=== PATIENT | female | born 1945 | race Caucasian/White ===

== ENCOUNTER 2020-06-25 12:54 | Outpatient (REF) | payer MEDICARE, MEDICAID, SELFPAY ==
--- NOTE | 2020-06-25 13:09 | XR_ITS ---
EXAMINATION: XR KNEE AP STANDING CLINICAL INFORMATION: Right knee pain. COMPARISON: 02/24/2013 TECHNIQUE: AP bilateral standing view of the knees was obtained. FINDINGS: Right knee: Severe medial compartment arthritis, joint space loss, osteophytes. Zkco-[id number] lateral compartment arthritis with marginal osteophytes. No evidence of acute fracture. Left knee: Single frontal projection. Moderate medial compartment, mild lateral compartment arthritis. Sclerotic focus projected over the central aspect of the distal femoral metaphysis/epiphysis, appears similar as compared to previous, incompletely evaluated. IMPRESSION: 1. Severe medial compartment, [id number] lateral compartment arthritis of the right knee. 2. Arthritis left knee, including moderate medial compartment arthritis. Incompletely evaluated sclerotic focus projected over the central aspect of the distal left femoral metaphysis/epiphysis, appearing similar to previous.
== END 2020-06-25 12:55 | disposition home or self-care (01) ==
LOC: CF 12:54
PROVIDERS: PCP Nurse Practitioner Family; Visit Provider Orthopaedic Surgery
DX: M17.11 Unilateral primary osteoarthritis, right knee (principal)
CPT/HCPCS: 20610; 73565; 99204; J1040

== ENCOUNTER → 2021-02-26 10:04 | Outpatient (BNVA) | payer MEDICARE, MEDICAID, SELFPAY | PROVIDERS: PCP Nurse Practitioner Family; Visit Provider Orthopaedic Surgery | DX: M54.16 Radiculopathy, lumbar region (principal); M17.11 Unilateral primary osteoarthritis, right knee | CPT/HCPCS: 99212 ==

== ENCOUNTER 2021-06-23 08:02 | Outpatient (REF) | payer MEDICARE, MEDICAID, SELFPAY ==
--- NOTE | ~2021-06-23 | XR_ITS ---
EXAMINATION: XR BOTH KNEES AP STANDING XR RIGHT KNEE, 2 VIEWS XR LEFT KNEE, 2 VIEWS CLINICAL INFORMATION: Pain. COMPARISON: Most recent bilateral knee radiographs dated 06/25/2020 TECHNIQUE: Standing AP view of both knees and lateral and sunrise views of the right and left knee. FINDINGS: Right knee: Severe medial compartment joint space narrowing with mild subchondral sclerosis. Tricompartmental marginal osteophytes. Patellofemoral subchondral cystic change. Small joint effusion. No abnormal soft tissue calcification. No fracture or dislocation. Left knee: Rzmi-wp-[id number] medial compartment joint space narrowing. Tricompartmental marginal osteophytes. 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 Small joint effusion. No abnormal soft tissue calcification. No fracture or dislocation. XR/XR knee LT 2V IMPRESSION: Right knee: Tricompartmental osteoarthritis, most severe within the medial compartment, unchanged. Small joint effusion. Left knee: Tricompartmental osteoarthritis, most prominent within the medial compartment, unchanged. Small joint effusion.
--- NOTE | ~2021-06-23 | XR_ITS ---
EXAMINATION: XR BOTH KNEES AP STANDING XR RIGHT KNEE, 2 VIEWS XR LEFT KNEE, 2 VIEWS CLINICAL INFORMATION: Pain. COMPARISON: Most recent bilateral knee radiographs dated 06/25/2020 TECHNIQUE: Standing AP view of both knees and lateral and sunrise views of the right and left knee. FINDINGS: Right knee: Severe medial compartment joint space narrowing with mild subchondral sclerosis. Tricompartmental marginal osteophytes. Patellofemoral subchondral cystic change. Small joint effusion. No abnormal soft tissue calcification. No fracture or dislocation. Left knee: Xlqi-zg-marxmter medial compartment joint space narrowing. Tricompartmental marginal osteophytes. 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 Small joint effusion. No abnormal soft tissue calcification. No fracture or dislocation. XR/XR knee RT 2V IMPRESSION: Right knee: Tricompartmental osteoarthritis, most severe within the medial compartment, unchanged. Small joint effusion. Left knee: Tricompartmental osteoarthritis, most prominent within the medial compartment, unchanged. Small joint effusion.
--- NOTE | ~2021-06-23 | XR_ITS ---
EXAMINATION: XR BOTH KNEES AP STANDING XR RIGHT KNEE, 2 VIEWS XR LEFT KNEE, 2 VIEWS CLINICAL INFORMATION: Pain. COMPARISON: Most recent bilateral knee radiographs dated 06/25/2020 TECHNIQUE: Standing AP view of both knees and lateral and sunrise views of the right and left knee. FINDINGS: Right knee: Severe medial compartment joint space narrowing with mild subchondral sclerosis. Tricompartmental marginal osteophytes. Patellofemoral subchondral cystic change. Small joint effusion. No abnormal soft tissue calcification. No fracture or dislocation. Left knee: Sjye-jn-xrzsceqf medial compartment joint space narrowing. Tricompartmental marginal osteophytes. 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 Small joint effusion. No abnormal soft tissue calcification. No fracture or dislocation. XR/XR knee standing BI IMPRESSION: Right knee: Tricompartmental osteoarthritis, most severe within the medial compartment, unchanged. Small joint effusion. Left knee: Tricompartmental osteoarthritis, most prominent within the medial compartment, unchanged. Small joint effusion.
== END 2021-06-23 08:03 | disposition home or self-care (01) ==
LOC: HO.HOSX 08:02
PROVIDERS: Visit Provider Orthopaedic Surgery
DX: M17.11 Unilateral primary osteoarthritis, right knee (principal); M25.562 Pain in left knee; M54.16 Radiculopathy, lumbar region
CPT/HCPCS: 73560; 73565; 99212

== ENCOUNTER → 2021-07-22 08:57 | Outpatient (BNVA) | payer MEDICARE, MEDICAID, SELFPAY | PROVIDERS: PCP Physician Assistant Medical; Visit Provider Nurse Practitioner Family | DX: M54.16 Radiculopathy, lumbar region (principal) | CPT/HCPCS: 99202 ==

== ENCOUNTER → 2021-08-19 10:15 | Outpatient (BNVA) | payer MEDICARE, MEDICAID, SELFPAY | PROVIDERS: PCP Physician Assistant Medical; Visit Provider Nurse Practitioner Family | DX: Z13.89 Encounter for screening for other disorder (principal) | CPT/HCPCS: 99212 ==

== ENCOUNTER 2021-08-19 11:21 | Outpatient (REF) | payer MEDICARE, MEDICAID, SELFPAY ==
[2021-08-19 12:24] LABS: Blood Urea Nitrogen 14 mg/dL (9-16); Estimated Glomerular Filt Rate > 60
== END 2021-08-19 11:22 | disposition home or self-care (01) ==
LOC: HO.10HDL 11:21
PROVIDERS: Visit Provider Nurse Practitioner Family
DX: Z01.818 Encounter for other preprocedural examination (principal)
CPT/HCPCS: 36415; 82565; 84520; 99212

== ENCOUNTER → 2021-10-01 09:45 | Outpatient (BNVA) | payer MEDICARE, MEDICAID, SELFPAY | PROVIDERS: Visit Provider Orthopaedic Surgery | DX: Z01.812 Encounter for preprocedural laboratory examination (principal); Z01.810 Encounter for preprocedural cardiovascular examination ==

== ENCOUNTER → 2021-10-22 12:32 | Outpatient (BNVA) | payer OTHER, SELFPAY | PROVIDERS: PCP Physician Assistant Medical; Referring Provider Physician Assistant Medical; Visit Provider Internal Medicine | DX: Z01.810 Encounter for preprocedural cardiovascular examination (principal); I35.0 Nonrheumatic aortic (valve) stenosis; I25.10 Atherosclerotic heart disease of native coronary artery without angina pectoris; I10 Essential (primary) hypertension | CPT/HCPCS: 99202 ==

== ENCOUNTER → 2021-10-24 12:35 | Outpatient (REF) | payer OTHER, SELFPAY ==
--- NOTE | 2021-10-24 12:44 | CA_ITS ---
Transthoracic Echocardiogram Patient (Last, First, Middle): Emily Dawn, Gender: Female Date of : 1945 Age: 76 Procedure Date: 10/24/2021 Procedure Type: Transthoracic Echocardiogram Location: OP Height: 160.02 cm Weight: 96.62 kg BSA: 1.99 m2 Heart Rate: bpm BP: 126 / 62 mmHg Pilling Machine Operator: ZAFAR Referring MD: Yogi Harris MD Symptoms: I35.0 - Nonrheumatic aortic (valve) stenosis Study Quality: Fair ECG Rhythm: Sinus Conclusions: - The left ventricular systolic function is hyperdynamic. The visually estimated ejection fraction is >70%. - No obvious valvular pathology seen on this study. Findings Left Ventricle Normal left ventricular cavity size. The left ventricular systolic function is hyperdynamic. The visually estimated ejection fraction is >70%. E/E prime ratio is >15, consistent with elevated filling pressures. Evidence suggests grade I (mild) diastolic dysfunction. There is mild septal asymmetric hypertrophy. Right Ventricle Normal right ventricular cavity size and systolic function. Atria Both atria are normal in size. Aortic Valve There is a normal trileaflet aortic valve. There is no aortic valve stenosis. There is no aortic valve regurgitation. Mitral Valve The mitral valve appears normal. There is no mitral valve regurgitation. There is no mitral valve stenosis. Pulmonic Valve The pulmonic valve was not well visualized. Tricuspid Valve There is trace tricuspid valve regurgitation. The pulmonary artery systolic pressure is normal. Great Vessels The aortic annulus, sinuses of valsalva, and asc aorta are normal in size. Venous The inferior vena cava is normal in size and collapses greater than 50% with inspiration. Pericardium/Pleural There is no evidence of pericardial effusion. Prior Study Comparison No prior study available for comparison. Recommendations, Care & Conclusions No obvious valvular pathology seen on this study. Measurements 2D Linear Measurements IVSd: 1.10 0.6-0.9/0.6-1.0 cm LVIDd: 4.93 3.9-5.3/4.2-5.9 cm LVIDd Index: 2.48 2.4-3.2/2.2-3.1 cm/m2 LVIDs: 3.18 2.0-3.6 cm LVPWd: 0.86 0.7-1.1 cm Ao Root: 2.70 2.1-3.5 cm LA Diam: 4.20 2.7-3.8/3.0-4.0 cm LAIDs Index: 2.11 1.5-2.3 cm/m2 LV Mass: 215.11 67-162/88-224 g LV Mass Index: 108.09 43-95/49-115 g/m2 LVOT Diam: 2.00 3.0+(-)1.3 cm 2D Systolic Function EF 4C: 57.60 >55% EF 2C: 61.70 >55% EF BiP: 59.60 >55% Mitral Valve MV Pk E: 1.18 MV PK A: 1.62 MV Decel Time: 246.00 E/A: 0.70 E'Lateral: 6.74 E'Medial: 4.46 E/E' Med: 26.50 E/E' Lat: 17.50 PHT: 72.00 MVA PHT: 3.06 Decel [place]: 4.77 Aortic Valve AoV Pk Francis: 2.06 AoV Mn Francis: 1.47 AoV VTI: 0.45 AoV Pk Grad: 17.00 Aov Mn Grad: 10.00 NATACHA Cont.VTI: 2.28 LVOT LVOT Pk Francis: 1.32 LVOT Mn Francis: 0.90 LVOT VTI: 0.33 LVOT Pk Grad: 7.00 LVOT Mn Grad: 4.00 LVOT Diam: 2.00 LVOT Area: 3.14 Diastolic Function MV Pk E: 1.18 MV Pk A: 1.62 E/A: 0.70 E'Medial: 4.46 E/E' Med: 26.50 E' Laterial: 6.74 E/E' Lat: 17.50 Right Ventricle TAPSE (mm): 25.40 TVS' Francis: 16.80 Tricuspid Valve TR Pk Francis: 1.03 TR Pk Grad: 4.00 Great Vessels Aorta Ao Root-2D: 2.70 2.0-3.7 cm Ao Asc: 3.00 2.1-3.4 cm Ao Arch: 3.00 Updated in Other Vendor System with Status of Final Yogi Harris MD electronically signed on 10/25/2021 1:04:48 PM with status of Final
== END ==
LOC: HO.CARD 12:35
PROVIDERS: Visit Provider Internal Medicine
DX: I35.0 Nonrheumatic aortic (valve) stenosis (principal)
CPT/HCPCS: 93306; 99212

== ENCOUNTER 2021-10-29 06:06 | Inpatient (IN) | payer OTHER, SELFPAY ==
[2021-10-03 09:31] LABS: MANUAL DIFF FLAG NO
[2021-10-03 09:48] LABS: Basophils Absolute Auto 0.1 X10*3/uL (0.0-0.2); Basophils Percent Auto 0.8 % (0-2); Eosinophils Absolute Auto 0.4 X10*3/uL (0.0-0.4); Eosinophils Percent Auto 2.7 % (0-4); Hematocrit 45.4 % (37.0-47.0); Hemoglobin 14.2 g/dl (12.0-16.0); Imm Gran Abs Auto 0.06 X10*3/uL (0.00-0.03); Imm Gran Pct Auto 0.5 % (0.0-0.4); Lymphocytes Absolute Auto 2.5 X10*3/uL (1.2-4.9); Lymphocytes Percent Auto 19.8 % (20-40); Mean Corpuscular HGB Conc 31.3 g/dl (31.0-35.0); Mean Corpuscular Hemoglobin 27.6 pg (27.0-33.0); Mean Corpuscular Volume 88.3 fL (80.0-98.0); Mean Platelet Volume 9.9 fL (9.4-12.3); Monocytes Absolute Auto 0.8 X10*3/uL (0.1-1.2); Monocytes Percent Auto 6.2 % (2-11); Neutrophils Absolute Auto 8.9 x10*3/uL (2.0-8.3); Platelet Count 232 X10*3/uL (160-400); Red Blood Count 5.14 X10*6/uL (4.20-5.50); Red Cell Distribution Width 15.4 % (11.0-16.0); White Blood Count 12.8 X10*3/uL (4.8-10.8)
[2021-10-03 10:24] LABS: Anion Gap 12 (12-20); Blood Urea Nitrogen 14 mg/dL (9-16); Calcium 8.5 mg/dL (8.4-10.2); Carbon Dioxide 25 mmol/L (22-29); Chloride 104 mmol/L (96-108); Estimated Glomerular Filt Rate > 60; Glucose Random 167 mg/dL (60-115); Potassium 3.9 mmol/L (3.3-5.1); Sodium 137 mmol/L (135-145)
--- NOTE | 2021-10-17 | ECG_ITS ---
Test Reason : CP Blood Pressure : / mmHG Vent. Rate : 078 BPM Atrial Rate : 078 BPM P-R Int : 146 ms QRS Dur : 082 ms QT Int : 386 ms P-R-T Axes : 055 -02 021 degrees QTc Int : 440 ms Normal sinus rhythm Normal ECG When compared with ECG of 15-MAR-2014 09:14, No significant change was found Referred By: John Hale Electronically Signed By:RAFIQ URIBE MD
[2021-10-17 12:12] VITALS: BP 179/77; PULSE 78; RESP 20; O2SAT 97; BMI 37.8
--- NOTE | 2021-10-17 12:27 | HO.ANESPROP2 ---
Documented by User: Brook Talley NP 10/28/21 08:22 HPI - Anesthesia Eval Consult details Narrative: 76yo F for Right Knee Replacement Total 04/2021 pt s/p L4-5 minimally invasive decompression and discectomy . Discussed GA if spinal anesthesia not possible. Pt and verbalized understanding PCP cleared Cardiac cleared Echocardiogram with hyperdynamic LVEF.? No significant valvular pathology.? No evidence of aortic stenosis.? May proceed with knee surgery as planned.? Low cardiac risk. PMF Active Problems Active Problems: All Active Problems (Updated 10/17/21 @ 12:16 by Soraya Chavez RN) Primary localized osteoarthritis of right knee (Acute) Lumbar radicular pain (Acute) Preprocedural examination (Acute) Past Medical History Medical History Arthritis Asthma COVID-19 vaccine series completed Elevated cholesterol GERD (gastroesophageal reflux disease) Hepatitis Hypertension Pre-diabetes TIA (transient ischemic attack) Family History Family History Father Cancer Mother No problems noted. Family history of problems with anesthesia: No Surgical History Surgical History H/O colonoscopy History of arthroscopy of right knee History of cholecystectomy History of esophagogastroduodenoscopy (EGD) History of rectal polypectomy History of tubal ligation Hx of lumbar discectomy History of Problems with Anesthesia: No Social History Social History Housing Other:: mobile home Are you a primary career services representative to a significant other at home: No Do you presently have visiting nurse or other home services: No Patient Tobacco Use Status: Former Tobacco user Quit Date: 09/26/21 Tobacco use type: Cigarette Years Smoked: 52 Smoked in Last 30 Days: Yes Patient Interested in Nicotine Replacement: Yes Use of substances other than those prescribed or required for medical reasons: No Have you been hit, kicked, punched, or otherwise hurt by someone within the past year? If so, by whom?: No Are you DNR?: No Advance Directives: No Advance Directives Information Provided: Yes (brochure given) Advance Directives on File: No Recently lost weight without trying: No Eating poorly because of decreased appetite: No Nutrition Risks: No Nutritional Risk Poor oral hygiene: No (full upper & lower dentures) Current occupational status: retired Current occupation: Rt handed/retired Narrative Narrative: No recent illness No SOB/CP with minimal activity. Activity limited to pain Meds Allergies Allergy/AdvReac Type Severity Reaction Status Date / Time peginterferon ramez-2a Allergy Intermediate Confusion/extreme Verified 10/23/21 13:03 [From Pegasys] HTN Penicillins [PENICILLINS] Allergy Intermediate itching/hives Verified 10/23/21 13:03 (childhood allergy) Home Medications Medication Instructions Recorded Confirmed Last Taken Type amlodipine 10 mg tablet 10 mg PO DAILY 06/19/20 10/22/21 10/29/21 History aspirin 81 mg tablet,delayed 81 mg PO DAILY 06/19/20 10/22/21 Unknown History release (Adult Low Dose Aspirin) simethicone 125 mg capsule (Gas 125 mg PO BID-QID PRN 06/19/20 10/22/21 Unknown History Relief (simethicone)) atorvastatin 10 mg tablet 10 mg PO DAILY 06/25/20 10/22/21 Unknown History trospium 20 mg tablet 20 mg PO DAILY 06/25/20 10/22/21 Unknown History sertraline 50 mg tablet 50 mg PO BEDTIME 07/22/21 10/22/21 Unknown History acetaminophen 500 mg tablet 1,000 mg PO Q6H PRN 10/17/21 10/22/21 Unknown History albuterol sulfate 0.63 mg/3 mL 0.63 mg INHALATION Q4-6H PRN 10/17/21 10/22/21 Unknown History solution for nebulization budesonide-formoterol HFA 160 1 inh INHALATION BID PRN 10/17/21 10/22/21 Unknown History mcg-4.5 mcg/actuation aerosol inhaler (Symbicort) omeprazole 40 mg capsule,delayed 40 mg PO BID 10/17/21 10/22/21 10/29/21 History release umeclidinium 62.5 mcg/actuation 1 inh INHALATION DAILY 10/17/21 10/22/21 10/29/21 History blister powder for inhalation (Incruse Ellipta) torsemide 5 mg tablet 5 mg PO DAILY 10/22/21 10/22/21 Unknown History Exam Exam Date and Time: October 17, 2021 1227 Height,Weight and Vital Signs: Height 5 ft 3 in Weight 96.8 kg Last Vital Signs Pulse 78 10/17/21 12:12 Resp 20 10/17/21 12:12 BP 179/77 H 10/17/21 12:12 Pulse Ox 97 10/17/21 12:12 Pertinent Lab Results Pertinent Lab Results: Laboratory Tests 10/03/21 10/03/21 09:29 09:29 WBC 12.8 H RBC 5.14 Hgb 14.2 Hct 45.4 MCV 88.3 MCH 27.6 MCHC 31.3 RDW 15.4 Plt Count 232 MPV 9.9 Immature Gran % (Auto) 0.5 H Neut % (Auto) 70.0 Lymph % (Auto) 19.8 L Smith % (Auto) 6.2 Eos % (Auto) 2.7 Baso % (Auto) 0.8 Lymph # (Auto) 2.5 Smith # (Auto) 0.8 Eos # (Auto) 0.4 Baso # (Auto) 0.1 Abs Immat Gran (auto) 0.06 H Absolute Neuts (auto) 8.9 H Absolute Nucleated RBC 0.000 Nucleated RBC % (auto) 0.0 Sodium 137 Potassium 3.9 Chloride 104 Carbon Dioxide 25 Anion Gap 12 BUN 14 Creatinine 0.85 Estim Creat Clear Calc TNP Estimated GFR > 60 Random Glucose 167 H Calcium 8.5 Narrative Narrative: EKG 09/2021 Vent. Rate : 078 BPM ? ? Atrial Rate : 078 BPM ?? P-R Int : 146 ms? QRS Dur : 082 ms ? ? QT Int : 386 ms ? ? ? P-R-T Axes : 055 -02 021 degrees ?? QTc Int : 440 ms ? Normal sinus rhythm Normal ECG When compared with ECG of 15-MAR-2014 09:14, No significant change was found MRI 09/2021 Essentially similar chronic multilevel degenerative changes with central canal stenosis and bilateral neural foraminal narrowing. ECHO 10/2021 Conclusions: - The left ventricular systolic function is hyperdynamic.? The ? visually estimated ejection fraction is >70%.? - No obvious valvular pathology seen on this study.?? Airway Mallampati Class: III (small mouth) TM Dist: >3cm Neck ROM: Full Denture: Upper and Lower Heart: RRR Lungs: Uppers clear, Lowers dim but no adventicous sounds Assessment and Plan Assessment Anesthesia Assessment: Anesthesia Plan Discussed (Spinal vs GA and Nerve block) and PAT Visit Final Anesthetic Review Family History of Problems with Anesthesia: No History of Problems with Anesthesia: No Documented by User: Yumi Thompson MD 10/29/21 08:15 PMFSH Active Problems Active Problems: All Active Problems (Updated 10/17/21 @ 12:16 by Soraya Chavez RN) Primary localized osteoarthritis of right knee (Acute) Lumbar radicular pain (Acute) Preprocedural examination (Acute) Asthma. Inhaler once a day. Used today Past Medical History Medical History Arthritis Asthma COVID-19 vaccine series completed Elevated cholesterol GERD (gastroesophageal reflux disease) Hepatitis Hypertension Pre-diabetes TIA (transient ischemic attack) Family History Family History Father Cancer Mother No problems noted. Surgical History Surgical History H/O colonoscopy History of arthroscopy of right knee History of cholecystectomy History of esophagogastroduodenoscopy (EGD) History of rectal polypectomy History of tubal ligation Hx of lumbar discectomy Social History Social History Housing Other:: mobile home Are you a primary career services representative to a significant other at home: No Do you presently have visiting nurse or other home services: No Patient Tobacco Use Status: Former Tobacco user Quit Date: 09/26/21 Tobacco use type: Cigarette Years Smoked: 52 Smoked in Last 30 Days: Yes Patient Interested in Nicotine Replacement: Yes Use of substances other than those prescribed or required for medical reasons: No Have you been hit, kicked, punched, or otherwise hurt by someone within the past year? If so, by whom?: No Are you DNR?: No Advance Directives: No Advance Directives Information Provided: Yes (brochure given) Advance Directives on File: No Recently lost weight without trying: No Eating poorly because of decreased appetite: No Nutrition Risks: No Nutritional Risk Poor oral hygiene: No (full upper & lower dentures) Current occupational status: retired Current occupation: Rt handed/retired Meds Allergies Allergy/AdvReac Type Severity Reaction Status Date / Time peginterferon ramez-2a Allergy Intermediate Confusion/extreme Verified 10/23/21 13:03 [From Pegasys] HTN Penicillins [PENICILLINS] Allergy Intermediate itching/hives Verified 10/23/21 13:03 (childhood allergy) Home Medications Medication Instructions Recorded Confirmed Last Taken Type amlodipine 10 mg tablet 10 mg PO DAILY 06/19/20 10/22/21 10/29/21 History aspirin 81 mg tablet,delayed 81 mg PO DAILY 06/19/20 10/22/21 Unknown History release (Adult Low Dose Aspirin) simethicone 125 mg capsule (Gas 125 mg PO BID-QID PRN 06/19/20 10/22/21 Unknown History Relief (simethicone)) atorvastatin 10 mg tablet 10 mg PO DAILY 06/25/20 10/22/21 Unknown History trospium 20 mg tablet 20 mg PO DAILY 06/25/20 10/22/21 Unknown History sertraline 50 mg tablet 50 mg PO BEDTIME 07/22/21 10/22/21 Unknown History acetaminophen 500 mg tablet 1,000 mg PO Q6H PRN 10/17/21 10/22/21 Unknown History albuterol sulfate 0.63 mg/3 mL 0.63 mg INHALATION Q4-6H PRN 10/17/21 10/22/21 Unknown History solution for nebulization budesonide-formoterol HFA 160 1 inh INHALATION BID PRN 10/17/21 10/22/21 Unknown History mcg-4.5 mcg/actuation aerosol inhaler (Symbicort) omeprazole 40 mg capsule,delayed 40 mg PO BID 10/17/21 10/22/21 10/29/21 History release umeclidinium 62.5 mcg/actuation 1 inh INHALATION DAILY 10/17/21 10/22/21 10/29/21 History blister powder for inhalation (Incruse Ellipta) torsemide 5 mg tablet 5 mg PO DAILY 10/22/21 10/22/21 Unknown History Exam Height,Weight and Vital Signs: Height 5 ft 3 in Weight 96.8 kg Last Vital Signs Pulse 78 10/17/21 12:12 Resp 20 10/17/21 12:12 BP 179/77 H 10/17/21 12:12 Pulse Ox 97 10/17/21 12:12 Vital Signs Temp Pulse Resp BP Pulse Ox 10/29/21 06:24 97.8 F 82 16 153/67 H 97 Pertinent Lab Results Pertinent Lab Results: Laboratory Tests 10/03/21 10/03/21 09:29 09:29 WBC 12.8 H RBC 5.14 Hgb 14.2 Hct 45.4 MCV 88.3 MCH 27.6 MCHC 31.3 RDW 15.4 Plt Count 232 MPV 9.9 Immature Gran % (Auto) 0.5 H Neut % (Auto) 70.0 Lymph % (Auto) 19.8 L Smith % (Auto) 6.2 Eos % (Auto) 2.7 Baso % (Auto) 0.8 Lymph # (Auto) 2.5 Smith # (Auto) 0.8 Eos # (Auto) 0.4 Baso # (Auto) 0.1 Abs Immat Gran (auto) 0.06 H Absolute Neuts (auto) 8.9 H Absolute Nucleated RBC 0.000 Nucleated RBC % (auto) 0.0 Sodium 137 Potassium 3.9 Chloride 104 Carbon Dioxide 25 Anion Gap 12 BUN 14 Creatinine 0.85 Estim Creat Clear Calc TNP Estimated GFR > 60 Random Glucose 167 H Calcium 8.5 Laboratory Results - last 24 hr 10/29/21 06:14 COVID-19 (FREDIS) Negative COVID-19 Clin Com See Note Assessment and Plan Final Anesthetic Review NPO: Yes ASA Class: III Final Preanesthetic Review: No Changes in Pt Med Stat, Meds/Allgs Chart Reviewed, Consent Obtained/Reviewed and Anes Risks/Benef Reviewed Patient Risk: Intermediate Procedure Risk: Intermediate Assessment/Block/Sedation in SS: Assess/Block/Sedation- Anesthetic Plan Anesthetic Plan: GA, Spinal and Regional Block (Right adductor canal block) Disposition: Standard PACU and Inp. Admit - Standard Bed
[2021-10-17 15:04] LABS: MRSA Nasal PCR NEGATIVE (Negative); SA Nasal PCR NEGATIVE (Negative)
[2021-10-29] VITALS (16 sets, daily range): BP systolic 118–153; BP diastolic 58–72; PULSE 71–100; RESP 13–22; TEMP 36.1–37.3; O2SAT 87–100
--- NOTE | ~2021-10-29 | XR_ITS ---
EXAMINATION: XR KNEE, RIGHT CLINICAL INFORMATION: Post knee replacement COMPARISON: Previous x-ray June 2021 TECHNIQUE: Two views of the right knee. FINDINGS: There is a new 3 component right knee replacement in satisfactory position. No fracture or dislocation is seen. There are postoperative changes to the soft tissues. XR/XR knee RT 2V IMPRESSION: Satisfactory appearance of right knee replacement.
--- NOTE | ~2021-10-29 | CT_ITS ---
EXAMINATION: CT ANGIOGRAM OF THE CHEST WITH AND WITHOUT CONTRAST (CT PULMONARY ANGIOGRAM FOR PE) CLINICAL INFORMATION: Hypoxia. COMPARISON: CTA of the chest dated from 03/14/2014. TECHNIQUE: Prior to contrast administration, noncontrast localization images were obtained. Subsequently, multidetector volumetric imaging was performed from the thoracic inlet to below the diaphragms following the administration of 71 mL Omnipaque 350 intravenous contrast. No contrast reaction reported Sagittal, coronal, and MIP oblique sagittal reformatted images were obtained on the CT workstation, uploaded to PACS, and reviewed. This CT examination was performed using dose optimization techniques as appropriate, variously including the following: *Automated exposure control *Adjustment of mA and/or kV according to patient size (this includes techniques or standardized protocols for targeted exams where dose is matched to indication/reason for exam; i.e. extremities or head) *Use of iterative reconstruction technique Total exam dose-length product 393 mGy-cm FINDINGS: QUALITY OF STUDY/CONTRAST BOLUS: Satisfactory. PULMONARY ARTERIES: No central or segmental pulmonary emboli. THORACIC AORTA: Atherosclerotic disease. No aneurysm or dissection. LUNG: There are bibasilar subsegmental atelectasis versus consolidative changes, more noticeable in the right lung. There is also an additional focus of airspace opacities in the left apex. Evaluation of small pulmonary nodules is limited due to motion. However, accounting for these limitations, no discrete pulmonary nodules or masses are identified. Redemonstration of a background of paraseptal and centrilobular emphysematous changes. The central airways are patent. PLEURA: Trace amount of bilateral pleural fluid. No pneumothorax. MEDIASTINUM: Normal heart size. No pericardial effusion. No hilar or mediastinal lymphadenopathy. No evidence of septal bowing or right heart strain. A large up to 3.2 cm heterogeneous right lobe of the thyroid lesion is increased from approximately 2.5 cm in 2014. CHEST WALL/AXILLA: No axillary or internal mammary lymphadenopathy. OSSEOUS STRUCTURES: No acute or suspicious osseous abnormality. Thoracic spondylosis. UPPER ABDOMEN: A 2.8 cm left adrenal lesion is stable since 2014 which is reassuring and does not require further follow-up. No reflux of contrast into the hepatic veins to suggest elevated right heart pressures. CT/CT angio chest PE protocol IMPRESSION: No evidence of pulmonary embolism nor increased right-sided heart pressures. Bibasilar subsegmental atelectasis versus early consolidative changes with also on additional focal airspace opacity in the left apex. These are nonspecific and could be infectious or inflammatory nature. A follow-up study is recommended after appropriate treatment to ensure resolution. Background of emphysematous changes. Increased size of the large heterogeneous lesion in the right lobe of the thyroid. If not already obtained, tissue sampling or correlation with a nonemergent thyroid ultrasound is recommended. VTE: negative
[2021-10-29 06:44] LABS: COVID-19 Test Negative (Negative)
[2021-10-29] MEDS: Lactated Ringers 1,000 ML 100 ML IVCONT ×3 (07:06→21:32)
[2021-10-29] MEDS: ceFAZolin Sodium/Dextrose,Iso 2 GM/50 ML PIGGYBACK IV ×2 (08:06→19:24)
--- NOTE | 2021-10-29 09:30 | PM.OP ---
Brief Operative Note Date of Service: 10/29/21 Pre-op diagnosis: right knee OA Post-op diagnosis: same Procedure: Right TKA Implants: Willie Triathalon press fit posterior stabilized 11/21/10 Surgeon: John Hale MD Anesthesia: regional and spinal Was an Cell Attendant used for this Procedure?: Yes Cell Attendant: Rachel Fox Estimated blood loss (mL): 200 IV fluids (mL): 1,000 Pathology: other Condition: stable Disposition: PACU
[2021-10-29] MEDS: oxyCODONE HCl ER 10 MG TAB.ER.12H PO ×2 (10:39→19:25)
[2021-10-29] MEDS: HYDROmorphone HCl 0.5 MG/0.5 ML SYRINGE 0.25 MG IVPUSH ×2 (10:57→11:05)
[2021-10-29] MEDS: ondansetron HCL 4 MG/2 ML VIAL IVPUSH (10:57)
[2021-10-29] MEDS: oxyCODONE HCl Immed Release 5 MG TABLET PO ×2 (12:46→19:25)
[2021-10-29] MEDS: Omeprazole 40 MG CAPSULE.DR PO (15:09)
[2021-10-29] MEDS: HYDROmorphone HCl 1 MG/ML SYRINGE 0.25 MG IVPUSH ×2 (15:09→21:39)
--- NOTE | 2021-10-29 15:27 | P.CONHOSP_ITS ---
History of Present Illness Data of Consult Service Date: 10/29/21 Requesting physician: John Hale Primary Care Provider: ANDREA Mckay Reason for consult: Medical management 76-year-old female with past medical history of asthma, hyperlipidemia, hypertension, prediabetes, TIA, underwent elective right total knee arthroplasty today, postprocedure patient has good pain control denies nausea vomiting, denies chest pain, no palpitation, denies headache, lightheadedness or dizzin ess, feels sleepy, walked to the bathroom without difficulty. Review of Systems Review of Systems: General no headache , no dizziness no fever chills. CVS no chest pain, no palpitation. Respiratory no cough ,no sob Gastrointestinal no nausea, no vomiting, no abdominal pain Yes all other systems are reviewed and are negative [facility] Medical History Arthritis Asthma COVID-19 vaccine series completed Elevated cholesterol GERD (gastroesophageal reflux disease) Hepatitis Hypertension Pre-diabetes TIA (transient ischemic attack) Family History Father Cancer Mother No problems noted. Surgical History H/O colonoscopy History of arthroscopy of right knee History of cholecystectomy History of esophagogastroduodenoscopy (EGD) History of rectal polypectomy History of tubal ligation Hx of lumbar discectomy Social History Housing Other:: mobile home Are you a primary care companion to a significant other at home: No Do you presently have visiting nurse or other home services: No Patient Tobacco Use Status: Former Tobacco user Quit Date: 09/26/21 Tobacco use type: Cigarette Years Smoked: 52 Smoked in Last 30 Days: Yes Patient Interested in Nicotine Replacement: Yes Use of substances other than those prescribed or required for medical reasons: No Currently Displaying Signs/Symptoms of Drug Intoxication Withdrawal: No Have you been hit, kicked, punched, or otherwise hurt by someone within the past year? If so, by whom?: No Are you DNR?: No Advance Directives: No Advance Directives Information Provided: Yes (brochure given) Advance Directives on File: No Recently lost weight without trying: No Eating poorly because of decreased appetite: No Nutrition Risks: No Nutritional Risk Poor oral hygiene: No (full upper & lower dentures) Current occupational status: retired Current occupation: Rt handed/retired Meds Allergies Allergy/AdvReac Type Severity Reaction Status Date / Time peginterferon [id number] Allergy Intermediate Confusion/extreme Verified 10/23/21 13:03 [From Pegasys] HTN Penicillins [PENICILLINS] Allergy Intermediate itching/hives Verified 10/23/21 13:03 (childhood allergy) Active Medications: Current Medications Acetaminophen (Acetaminophen 325 Mg Tablet) 650 mg PO Q6H PRN PRN Reason: Pain, Mild (Pain Scale 1-3) Albuterol Sulfate (Albuterol Sulfate (0.042%) 1.25 Mg/3 Ml Vial.Neb) 0.63 mg INHALE Q4H PRN PRN Reason: Wheezing Amlodipine Besylate (Amlodipine Besylate 10 Mg Tablet) 10 mg PO DAILY [facility]; Protocol Atorvastatin Calcium (Atorvastatin Calcium 10 Mg Tablet) 10 mg PO BEDTIME [facility] Celecoxib (Celecoxib 200 Mg Capsule) 200 mg PO BID [facility] Docusate Sodium (Docusate Sodium 100 Mg Capsule) 100 mg PO BID ON LICENSE OF [facility] Fluticasone/Vilanterol (Fluticasone/Vilanterol 200/25 Blst.W.Dev) 1 puff INHALE RDAILY ON LICENSE OF [facility] Gabapentin (Gabapentin 100 Mg Capsule) 100 mg PO BEDTIME [facility] Hydromorphone HCl (Hydromorphone Hcl 1 Mg/Ml Syringe) 0.25 mg IVPUSH Q4H PRN; Protocol PRN Reason: Pain, Severe (Pain Scale 7-10) Last Admin: 10/29/21 15:09 Dose: 0.25 mg Documented by: Lactated Ringer's (Lr) 1,000 mls @ 100 mls/hr IVCONT .Q10H ON LICENSE OF [facility] Last Admin: 10/29/21 15:14 Dose: Not Given Documented by: Cefazolin Sodium/Dextrose (Ancef) 2 gm in 50 mls @ 100 mls/hr IV POSTOP ON LICENSE OF [facility] Non-Formulary Medication (Trospium) 20 mg PO DAILY ON LICENSE OF [facility] Omeprazole (Omeprazole 40 Mg Capsule.Dr) 40 mg PO BID@0630,1630 ON LICENSE OF [facility] Last Admin: 10/29/21 15:09 Dose: 40 mg Documented by: Ondansetron HCl (Ondansetron Hcl 4 Mg/2 Ml Vial) 4 mg IVPUSH Q8H PRN PRN Reason: Nausea and Vomiting Oxycodone HCl (Oxycodone Hcl Er 10 Mg Tab.Er.12h) 10 mg PO BID ON LICENSE OF [facility] Last Admin: 10/29/21 10:39 Dose: 10 mg Documented by: Oxycodone HCl (Oxycodone Hcl Immed Release 5 Mg Tablet) 5 mg PO Q4H PRN PRN Reason: Pain, Moderate (Pain Scale 4-6 Last Admin: 10/29/21 12:46 Dose: 5 mg Documented by: Sertraline HCl (Sertraline Hcl 50 Mg Tablet) 50 mg PO BEDTIME ON LICENSE OF [facility] Sodium Chloride (0.9 % Sodium Chloride Flush 3 Ml Syringe) 3 ml IVFLUSH QSHIFT ON LICENSE OF [facility] Last Admin: 10/29/21 13:55 Dose: Not Given Documented by: Tiotropium [place] (Tiotropium [place] 18 Mcg Cap.W.Dev) 1 puff INHALE RDAILY ON LICENSE OF [facility] Home Medications Medication Instructions Recorded Confirmed Last Taken Type amlodipine 10 mg tablet 10 mg PO DAILY 06/19/20 10/22/21 10/29/21 History aspirin 81 mg tablet,delayed 81 mg PO DAILY 06/19/20 10/22/21 Unknown History release (Adult Low Dose Aspirin) simethicone 125 mg capsule (Gas 125 mg PO BID-QID PRN 06/19/20 10/22/21 Unknown History Relief (simethicone)) atorvastatin 10 mg tablet 10 mg PO DAILY 06/25/20 10/22/21 Unknown History trospium 20 mg tablet 20 mg PO DAILY 06/25/20 10/22/21 Unknown History sertraline 50 mg tablet 50 mg PO BEDTIME 07/22/21 10/22/21 Unknown History acetaminophen 500 mg tablet 1,000 mg PO Q6H PRN 10/17/21 10/22/21 Unknown History albuterol sulfate 0.63 mg/3 mL 0.63 mg INHALATION Q4-6H PRN 10/17/21 10/22/21 Unknown History solution for nebulization budesonide-formoterol HFA 160 1 inh INHALATION BID PRN 10/17/21 10/22/21 Unknown History mcg-4.5 mcg/actuation aerosol inhaler (Symbicort) omeprazole 40 mg capsule,delayed 40 mg PO BID 10/17/21 10/22/21 10/29/21 History release umeclidinium 62.5 mcg/actuation 1 inh INHALATION DAILY 10/17/21 10/22/21 10/29/21 History blister powder for inhalation (Incruse Ellipta) torsemide 5 mg tablet 5 mg PO DAILY 10/22/21 10/22/21 Unknown History Physical Exam Vital Signs and Narrative: Vital Signs: Last Vital Signs Temp 97.0 F 10/29/21 12:00 Pulse 85 10/29/21 12:00 Resp 18 10/29/21 12:00 BP 148/64 H 10/29/21 12:00 Pulse Ox 92 10/29/21 12:00 BMI result Body Mass Index 37.8 Const: Other: General awake alert x3,in no acute distress. Neck supple no JVD. CVS regular rate rhythm, systolic murmur Respiratory lungs clear to auscultation, no respiratory distress Gastrointestinal abdomen soft, nontender, bowel sounds audible Extremities no edema. Right knee dressing in place Neuro nonfocal Skin no rash psych appropriate affect Results Labs CBC and Chem 7: 10/03/21 09:29 10/03/21 09:29 Labs: Laboratory Results - last 24 hr 10/29/21 06:14 COVID-19 (FREDIS) Negative COVID-19 Clin Com See Note Imaging Radiologist's Impressions: Impressions Knee X-Ray 10/29/21 10:40 IMPRESSION: Satisfactory appearance of right knee replacement. Assessment and Plan (1) Atherosclerotic cardiovascular disease: Status: Acute (2) Essential hypertension: Status: Acute (3) Non-rheumatic aortic stenosis: Status: Acute Plan 76-year-old female patient with multiple issues including history of asthma, hypertension, hyperlipidemia, mild coronary artery disease, GERD, hepatitis and pre diabetes Underwent elective right total knee arthroplasty.. Right total knee arthroplasty postoperative day 0 pain management and anticoagulation as per Orthopedic surgery follow CBC/ recommend stool softeners and incentive spirometry DC IV fluids, tolerating po. hypertension continue amlodipine 10 mg daily, follow BP hyperlipidemia continue statin. mild coronary artery disease no chest pain, recent echo showed EF greater than 70 grade 1 diastolic dysfunction mild septal asymmetry, no valvular pathology. asthma no acute exacerbation, continue Symbicort and home inhalers pre diabetes follow blood sugars. DVT prophylaxis as per Ortho
[2021-10-29] MEDS: Gabapentin 100 MG CAPSULE PO (19:24)
[2021-10-29] MEDS: Acetaminophen 325 MG TABLET 650 MG PO (19:25)
[2021-10-29] MEDS: Docusate Sodium 100 MG CAPSULE PO (19:25)
[2021-10-29] MEDS: Sertraline HCL 50 MG TABLET PO (19:25)
[2021-10-29] MEDS: Celecoxib 200 MG CAPSULE PO (19:25)
[2021-10-30] VITALS (7 sets, daily range): BP systolic 120–168; BP diastolic 58–82; PULSE 83–93; RESP 16–20; TEMP 36.2–37.7; O2SAT 90–94
[2021-10-30] MEDS: oxyCODONE HCl Immed Release 5 MG TABLET PO ×3 (03:57→20:52)
[2021-10-30] MEDS: Omeprazole 40 MG CAPSULE.DR PO ×2 (05:43→16:42)
[2021-10-30 06:38] LABS: Basophils Absolute Auto 0.1 X10*3/uL (0.0-0.2); Basophils Percent Auto 0.4 % (0-2); Eosinophils Absolute Auto 0.2 X10*3/uL (0.0-0.4); Eosinophils Percent Auto 1.2 % (0-4); Hematocrit 40.7 % (37.0-47.0); Imm Gran Pct Auto 0.6 % (0.0-0.4); Lymphocytes Absolute Auto 1.8 X10*3/uL (1.2-4.9); Lymphocytes Percent Auto 11.4 % (20-40); MANUAL DIFF FLAG SCAN; Mean Corpuscular HGB Conc 31.9 g/dl (31.0-35.0); Mean Corpuscular Hemoglobin 27.9 pg (27.0-33.0); Mean Corpuscular Volume 87.3 fL (80.0-98.0); Mean Platelet Volume 10.5 fL (9.4-12.3); Monocytes Absolute Auto 2.3 X10*3/uL (0.1-1.2); Monocytes Percent Auto 14.2 % (2-11); Neutrophils Absolute Auto 11.5 x10*3/uL (2.0-8.3); Neutrophils Percent Auto 72.2 % (45-73); Platelet Count 223 X10*3/uL (160-400); Red Blood Count 4.66 X10*6/uL (4.20-5.50); Red Cell Distribution Width 16.1 % (11.0-16.0); SCAN SMEAR FLAG 1; White Blood Count 15.9 X10*3/uL (4.8-10.8)
--- NOTE | 2021-10-30 06:45 | HO.POSTANES ---
Post Anesthesia Evaluation Post Anesthesia Evaluation Vital Signs: Vital Signs Temp Pulse Resp BP Pulse Ox 10/30/21 03:47 98.5 F 90 18 137/64 92 10/29/21 23:52 92 10/29/21 23:34 98.1 F 96 15 126/61 87 L 10/29/21 20:00 99.1 F 100 19 153/60 H 93 Anesthesia: Spinal and Nerve Block Mental Status: Awake Pain Control: Satisfactory (pain 6/10 but improving) Nausea/Vomiting: None Hydration: Adequate Anesthesia-Related Issues: No Anes. Related Issues
[2021-10-30] MEDS: amLODIPine Besylate 10 MG TABLET PO (07:40)
[2021-10-30] MEDS: Celecoxib 200 MG CAPSULE PO (07:41)
[2021-10-30] MEDS: oxyCODONE HCl ER 10 MG TAB.ER.12H PO ×2 (07:41→20:52)
[2021-10-30] MEDS: Docusate Sodium 100 MG CAPSULE PO ×2 (07:41→20:52)
[2021-10-30] MEDS: 0.9 % Sodium Chloride Flush 3 ML SYRINGE IVFLUSH ×3 (07:41→20:53)
[2021-10-30 07:46] LABS: SLIDE REVIEW VERIFIED
[2021-10-30 07:54] LABS: Anion Gap 13 (12-20); Blood Urea Nitrogen 24 mg/dL (9-16); Calcium 8.5 mg/dL (8.4-10.2); Carbon Dioxide 27 mmol/L (22-29); Chloride 104 mmol/L (96-108); Creatinine Clr Calc Pharmacy 41.4; Estimated Glomerular Filt Rate 39; Glucose Fasting 135 mg/dL (60-99); Potassium 4.8 mmol/L (3.3-5.1); Sodium 139 mmol/L (135-145)
[2021-10-30] MEDS: Fluticasone/Vilanterol 200/25 BLST.W.DEV 1 PUFF INHALE (08:33)
[2021-10-30] MEDS: Aspirin 325 MG TABLET PO ×2 (09:04→20:52)
--- NOTE | 2021-10-30 09:09 | P.PNOP_ITS ---
Subjective Subjective Date of Service: 10/30/21 Interval history: POD 1 s/p RT TKA no overnight events she has been out of bed to commode denies cp, palpitations, sob Physical Exam Vital Signs: Vital Signs: Last Vital Signs Temp 97.2 F 10/30/21 07:41 Pulse 91 10/30/21 08:36 Resp 20 10/30/21 08:36 BP 168/82 H 10/30/21 07:41 Pulse Ox 91 L 10/30/21 07:41 BMI result Body Mass Index 37.8 Const: General: cooperative, healthy appearing and no acute distress Resp: Effort & Inspection: normal respiratory effort and able to speak in complete sentences Cardio: Rate: regular rate Peripheral pulses: Peripheral pulses 2+ throughout GI: Palpation (GI): Soft to palpation Skin: General skin exam: no rashes or lesions noted Extrem: Other: bandage No erythema or joint effusion. Calf supple nontender. Neurovascularly intact. Procedures Date of Service Date of Service: 10/30/21 Progress Note: A&P Assessment and plan (1) Status post total right knee replacement: Status: Acute Assessment and Plan: * Continue pain mgmnt * Begin Aspirin for dvt ppx * begin PT for RT TKA * Dispo planning-Pending PT eval, pain mgmnt Fall Risk Details Current Medications: Current Medications Acetaminophen (Acetaminophen 325 Mg Tablet) 650 mg PO Q6H PRN PRN Reason: Pain, Mild (Pain Scale 1-3) Last Admin: 10/29/21 19:25 Dose: 650 mg Documented by: Albuterol Sulfate (Albuterol Sulfate (0.042%) 1.25 Mg/3 Ml Vial.Neb) 0.63 mg INHALE Q4H PRN PRN Reason: Wheezing Amlodipine Besylate (Amlodipine Besylate 10 Mg Tablet) 10 mg PO DAILY [facility]; Protocol Last Admin: 10/30/21 07:40 Dose: 10 mg Documented by: Aspirin (Aspirin 325 Mg Tablet) 325 mg PO BID [facility] Last Admin: 10/30/21 09:04 Dose: 325 mg Documented by: Atorvastatin Calcium (Atorvastatin Calcium 10 Mg Tablet) 10 mg PO BEDTIME [facility] Celecoxib (Celecoxib 200 Mg Capsule) 200 mg PO BID [facility] Last Admin: 10/30/21 07:41 Dose: 200 mg Documented by: Docusate Sodium (Docusate Sodium 100 Mg Capsule) 100 mg PO BID [facility] Last Admin: 10/30/21 07:41 Dose: 100 mg Documented by: Fluticasone/Vilanterol (Fluticasone/Vilanterol 200/25 Blst.W.Dev) 1 puff INHALE RDAILY [facility] Last Admin: 10/30/21 08:33 Dose: 1 puff Documented by: Gabapentin (Gabapentin 100 Mg Capsule) 100 mg PO BEDTIME [facility] Last Admin: 10/29/21 19:24 Dose: 100 mg Documented by: Hydromorphone HCl (Hydromorphone Hcl 1 Mg/Ml Syringe) 0.25 mg IVPUSH Q4H PRN; Protocol PRN Reason: Pain, Severe (Pain Scale 7-10) Last Admin: 10/29/21 21:39 Dose: 0.25 mg Documented by: Cefazolin Sodium/Dextrose (Ancef) 2 gm in 50 mls @ 100 mls/hr IV POSTOP [facility] Last Infusion: 10/29/21 20:02 Dose: Infused Documented by: Non-Formulary Medication (Trospium) 20 mg PO DAILY [facility] Omeprazole (Omeprazole 40 Mg Capsule.Dr) 40 mg PO BID@0630,1630 [facility] Last Admin: 10/30/21 05:43 Dose: 40 mg Documented by: Ondansetron HCl (Ondansetron Hcl 4 Mg/2 Ml Vial) 4 mg IVPUSH Q8H PRN PRN Reason: Nausea and Vomiting Oxycodone HCl (Oxycodone Hcl Er 10 Mg Tab.Er.12h) 10 mg PO BID [facility] Last Admin: 10/30/21 07:41 Dose: 10 mg Documented by: Oxycodone HCl (Oxycodone Hcl Immed Release 5 Mg Tablet) 5 mg PO Q4H PRN PRN Reason: Pain, Moderate (Pain Scale 4-6 Last Admin: 10/30/21 09:04 Dose: 5 mg Documented by: Sertraline HCl (Sertraline Hcl 50 Mg Tablet) 50 mg PO BEDTIME [facility] Last Admin: 10/29/21 19:25 Dose: 50 mg Documented by: Sodium Chloride (0.9 % Sodium Chloride Flush 3 Ml Syringe) 3 ml IVFLUSH QSHIFT [facility] Last Admin: 10/30/21 07:41 Dose: 3 ml Documented by: Tiotropium [place] (Tiotropium [place] 18 Mcg Cap.W.Dev) 1 puff INHALE LEAH [facility] Last Admin: 10/30/21 08:34 Dose: Not Given Documented by: Time Spent With Patient Time: Total time spent is greater than 50% in coordination of care (as documented) at patient's floor/unit and/or counseling patient: Time with patient: less than 15 minutes Quality Stroke Does the patient have a stroke diagnosis?: No VTE Prior VTE?: No VTE Risk Level:: Surgical - very high VTE Device Contraindication: N/A - Device Ordered VTE Drug Contraindication: N/A - Med Ordered
--- NOTE | 2021-10-30 10:58 | P.PNIM_ITS ---
Subjective Subjective Date of Service: 10/30/21 Interval History: status post right total knee arthroplasty has good pain control, offers no acute complaints, denies fever, chills, no nausea, no vomiting, no abdominal pain tolerating diet. Review of Systems [employer] no headache, no dizziness CVS no chest pain, no palpitation no urinary urgency, no frequency Review of Systems: Yes all other systems are reviewed and are negative Physical Exam Vital Signs: Vital Signs: Last Vital Signs Temp 97.2 F 10/30/21 07:41 Pulse 91 10/30/21 08:36 Resp 20 10/30/21 08:36 BP 168/82 H 10/30/21 07:41 Pulse Ox 91 L 10/30/21 07:41 BMI result Body Mass Index 37.8 Const: Other: General? awake alert x3,in no acute distress.? Neck? supple no JVD. CVS? regular rate rhythm, systolic murmur Respiratory lungs clear to auscultation, no respiratory distress Gastrointestinal abdomen soft, nontender, bowel sounds audible Extremities no edema. Right knee dressing in place Neuro nonfocal Skin no rash psych appropriate affect Objective Data Active Medications Acetaminophen (Acetaminophen 325 Mg Tablet) 650 mg PO Q6H PRN PRN Reason: Pain, Mild (Pain Scale 1-3) Last Admin: 10/29/21 19:25 Dose: 650 mg Documented by: FER Albuterol Sulfate (Albuterol Sulfate (0.042%) 1.25 Mg/3 Ml Vial.Neb) 0.63 mg INHALE Q4H PRN PRN Reason: Wheezing Amlodipine Besylate (Amlodipine Besylate 10 Mg Tablet) 10 mg PO DAILY [facility]; Protocol Last Admin: 10/30/21 07:40 Dose: 10 mg Documented by: INDERJIT Aspirin (Aspirin 325 Mg Tablet) 325 mg PO BID [facility] Last Admin: 10/30/21 09:04 Dose: 325 mg Documented by: INDERJIT Atorvastatin Calcium (Atorvastatin Calcium 10 Mg Tablet) 10 mg PO BEDTIME [facility] Celecoxib (Celecoxib 200 Mg Capsule) 200 mg PO BID [facility] Last Admin: 10/30/21 07:41 Dose: 200 mg Documented by: INDERJIT Docusate Sodium (Docusate Sodium 100 Mg Capsule) 100 mg PO BID [facility] Last Admin: 10/30/21 07:41 Dose: 100 mg Documented by: INDERJIT Fluticasone/Vilanterol (Fluticasone/Vilanterol 200/25 Blst.W.Dev) 1 puff INHALE RDAILY [facility] Last Admin: 10/30/21 08:33 Dose: 1 puff Documented by: ALEJANDRO Gabapentin (Gabapentin 100 Mg Capsule) 100 mg PO BEDTIME [facility] Last Admin: 10/29/21 19:24 Dose: 100 mg Documented by: FER Hydromorphone HCl (Hydromorphone Hcl 1 Mg/Ml Syringe) 0.25 mg IVPUSH Q4H PRN; Protocol PRN Reason: Pain, Severe (Pain Scale 7-10) Last Admin: 10/29/21 21:39 Dose: 0.25 mg Documented by: FER Cefazolin Sodium/Dextrose (Ancef) 2 gm in 50 mls @ 100 mls/hr IV POSTOP [facility] Last Infusion: 10/29/21 20:02 Dose: 0 mls/hr Documented by: FER Non-Formulary Medication (Trospium) 20 mg PO DAILY [facility] Omeprazole (Omeprazole 40 Mg Capsule.Dr) 40 mg PO BID@0630,1630 [facility] Last Admin: 10/30/21 05:43 Dose: 40 mg Documented by: FER Ondansetron HCl (Ondansetron Hcl 4 Mg/2 Ml Vial) 4 mg IVPUSH Q8H PRN PRN Reason: Nausea and Vomiting Oxycodone HCl (Oxycodone Hcl Er 10 Mg Tab.Er.12h) 10 mg PO BID [facility] Last Admin: 10/30/21 07:41 Dose: 10 mg Documented by: INDERJIT Oxycodone HCl (Oxycodone Hcl Immed Release 5 Mg Tablet) 5 mg PO Q4H PRN PRN Reason: Pain, Moderate (Pain Scale 4-6 Last Admin: 10/30/21 09:04 Dose: 5 mg Documented by: INDERJIT Sertraline HCl (Sertraline Hcl 50 Mg Tablet) 50 mg PO BEDTIME [facility] Last Admin: 10/29/21 19:25 Dose: 50 mg Documented by: FER Sodium Chloride (0.9 % Sodium Chloride Flush 3 Ml Syringe) 3 ml IVFLUSH QSHIFT [facility] Last Admin: 10/30/21 07:41 Dose: 3 ml Documented by: INDERJIT Tiotropium [place] (Tiotropium [place] 18 Mcg Cap.W.Dev) 1 puff INHALE RDAILY [facility] Last Admin: 10/30/21 08:34 Dose: Not Given Documented by: ALEJANDRO Non-Admin Reason: Med Not Available Labs CBC & Chem 7: 10/30/21 05:38 10/30/21 05:38 Labs: Laboratory Results - last 24 hr 10/30/21 10/30/21 05:38 05:38 MCV 87.3 MCH 27.9 MCHC 31.9 RDW 16.1 H Plt Count 223 MPV 10.5 Immature Gran % (Auto) 0.6 H Neut % (Auto) 72.2 Lymph % (Auto) 11.4 L [place] % (Auto) 14.2 H Eos % (Auto) 1.2 Baso % (Auto) 0.4 Lymph # (Auto) 1.8 [place] # (Auto) 2.3 H Eos # (Auto) 0.2 Baso # (Auto) 0.1 Abs Immat Gran (auto) 0.10 H Absolute Neuts (auto) 11.5 H Absolute Nucleated RBC 0.000 Nucleated RBC % (auto) 0.0 Smear Tech's Comments VERIFIED Anion Gap 13 Estim Creat Clear Calc 41.4 Estimated GFR 39 Fasting Glucose 135 H Calcium 8.5 Assessment and Plan (1) Atherosclerotic cardiovascular disease: Status: Acute (2) Status post total right knee replacement: Status: Acute (3) Essential hypertension: Status: Acute Plan 76-year-old female patient with multiple issues including history of asthma, hypertension, hyperlipidemia, mild coronary artery disease, GERD, hepatitis and pre diabetes? Underwent elective right total knee arthroplasty.. ?Right total knee arthroplasty postoperative day 0 ?pain management and anticoagulation as per Orthopedic surgery stable hematocrit cont. stool softeners and incentive spirometry ?Dehydration noted to have slight bump in creatinine, will DC Celebrex, follow BMP, encourage po fluids. Acute respiratory failure noted to have finger oximetry 87% on room air therefore placed on oxygen currently steve 92 on 2 liters ? leukocytosis likely reactive, will check urinalysis follow repeat CBC. ?hypertension? elevated BP this a.m.,continue amlodipine 10 mg daily, follow BP ?hyperlipidemia continue statin. ?mild coronary artery disease no chest pain, recent echo showed EF greater than 70 grade 1 diastolic dysfunction mild septal asymmetry, no valvular pathology. ?asthma no acute exacerbation, continue Symbicort and? home inhalers ?pre diabetes fasting blood sugar 135, recommend diabetic diet ?DVT prophylaxis as per Ortho Quality Stroke Does the patient have a stroke diagnosis?: No VTE Prior VTE?: No VTE Risk Level:: Surgical - very high VTE Device Contraindication: N/A - Device Ordered VTE Drug Contraindication: N/A - Med Ordered
--- NOTE | 2021-10-30 13:18 | MHC.CM.PN ---
Addendum entered by Mulu Romano 10/30/21 13:33: [facility] AND RECIVED INS AUTH FOR THE [facility] FOR HOME PHYSICAL THERAPY 10/30/21 1;54 Original Note: NURSE HITCHER NOTE [facility] MEDICAL RECORD [id number] SLONG WITH CASE DISCUSSED WITH STAFF NURSE AND PHYSICAL THERAPSIT , MET WITH PATIENT WITH [facility] INTERPERTER , MEDICARE IMM UPDATED , EDUCATED ABOUT HCP PATIENT BELIEVERS SHE HAS ONE AT HOME COPY REQUESTED. PATIENT CONFIRMED PCP DR CHRIS Esteban confirmed reciving the covid 19 vaccinations qt the [facility] moderna ist one oct 2210/2020november 19/2021 and the moderna booster 09/02/2021. she has no vna , no dme services in the home ahe has operations leader 20.5 hours weekly , walker , comode , shower chair in the home , discharge plan home [facility] pcp dr larry case patient [facility] oprthopedic surgical follow up per discharge instructions transportation -yet to be determined medicare imm completed 10/30/21
[2021-10-30] MEDS: Acetaminophen 325 MG TABLET 650 MG PO (20:52)
[2021-10-30] MEDS: Gabapentin 100 MG CAPSULE PO (20:52)
[2021-10-30] MEDS: Atorvastatin Calcium 10 MG TABLET PO (20:52)
[2021-10-30] MEDS: Sertraline HCL 50 MG TABLET PO (20:52)
[2021-10-31] VITALS (10 sets, daily range): BP systolic 133–142; BP diastolic 56–67; PULSE 85–92; RESP 17–20; TEMP 36.6–37.4; O2SAT 84–98
[2021-10-31] MEDS: oxyCODONE HCl Immed Release 5 MG TABLET PO ×2 (05:51→17:48)
[2021-10-31] MEDS: Omeprazole 40 MG CAPSULE.DR PO ×2 (05:52→17:42)
[2021-10-31 06:17] LABS: Basophils Absolute Auto 0.1 X10*3/uL (0.0-0.2); Basophils Percent Auto 0.5 % (0-2); Eosinophils Absolute Auto 0.4 X10*3/uL (0.0-0.4); Eosinophils Percent Auto 2.1 % (0-4); Hematocrit 37.1 % (37.0-47.0); Hemoglobin 11.9 g/dl (12.0-16.0); Imm Gran Abs Auto 0.25 X10*3/uL (0.00-0.03); Imm Gran Pct Auto 1.3 % (0.0-0.4); Lymphocytes Percent Auto 10.7 % (20-40); MANUAL DIFF FLAG SCAN; Mean Corpuscular HGB Conc 32.1 g/dl (31.0-35.0); Mean Corpuscular Hemoglobin 28.1 pg (27.0-33.0); Mean Corpuscular Volume 87.7 fL (80.0-98.0); Mean Platelet Volume 10.4 fL (9.4-12.3); Monocytes Absolute Auto 2.3 X10*3/uL (0.1-1.2); Monocytes Percent Auto 12.1 % (2-11); Neutrophils Absolute Auto 13.7 x10*3/uL (2.0-8.3); Neutrophils Percent Auto 73.3 % (45-73); Platelet Count 190 X10*3/uL (160-400); Red Blood Count 4.23 X10*6/uL (4.20-5.50); Red Cell Distribution Width 16.1 % (11.0-16.0); SCAN SMEAR FLAG 1; White Blood Count 18.7 X10*3/uL (4.8-10.8)
[2021-10-31 06:48] LABS: Anion Gap 13 (12-20); Blood Urea Nitrogen 34 mg/dL (9-16); Calcium 9.1 mg/dL (8.4-10.2); Carbon Dioxide 28 mmol/L (22-29); Chloride 103 mmol/L (96-108); Creatinine Clr Calc Pharmacy 47.5; Estimated Glomerular Filt Rate 46; Glucose Fasting 131 mg/dL (60-99); Potassium 4.6 mmol/L (3.3-5.1); Sodium 139 mmol/L (135-145)
[2021-10-31 07:11] LABS: SLIDE REVIEW VERIFIED
[2021-10-31] MEDS: Docusate Sodium 100 MG CAPSULE PO ×2 (08:09→21:37)
[2021-10-31] MEDS: oxyCODONE HCl ER 10 MG TAB.ER.12H PO ×2 (08:09→21:37)
[2021-10-31] MEDS: Aspirin 325 MG TABLET PO ×2 (08:09→21:37)
[2021-10-31] MEDS: amLODIPine Besylate 10 MG TABLET PO (08:09)
[2021-10-31] MEDS: 0.9 % Sodium Chloride Flush 3 ML SYRINGE IVFLUSH ×2 (08:10→21:37)
[2021-10-31] MEDS: Acetaminophen 325 MG TABLET 650 MG PO (08:13)
[2021-10-31] MEDS: Fluticasone/Vilanterol 200/25 BLST.W.DEV 1 PUFF INHALE (08:15)
--- NOTE | 2021-10-31 08:16 | P.DS_ITS ---
DS: Providers Provider Date of Service: 11/01/21 Date of admission: 10/29/21 06:06 Primary care physician: ANDREA Mckay Consults: 10/29/21 11:48 Consult to Hospitalist Routine Consulting Provider: Hospitalist Reason For Exam: routine medical management DS: Diagnosis Discharge Diagnosis (1) Atherosclerotic cardiovascular disease: Status: Acute (2) Status post total right knee replacement: Status: Acute (3) Essential hypertension: Status: Acute DS: Summary Hospital Course Hospital Course: The patient underwent a successful right total knee arthroplasty, was transferred to PACU and then to the floor to recover. During their stay, their vitals were stable, afebrile at 97.0 . Labs were unremarkable, H/H 11.6/36.6. POD 1 she was started on ASA for DVT ppx, they also received PT services twice a day. Prior to discharge she received a home oxygen eval due to her oxygen saturation dropping below 90 during he stay, and it was recommended she use constant home Oxygen at 3lpm. She was discharged home with VNA services. Time Spent with Patient Time attestation: Total time spent providing and/or coordinating discharge services: Discharge coordination time: Less than 30 minutes Quality: Stroke Does the patient have a stroke diagnosis?: No Physical Exam Vital Signs: Vital Signs: Last Vital Signs Temp 97.9 F 10/31/21 03:36 Pulse 89 10/31/21 03:36 Resp 17 10/31/21 03:36 BP 133/57 L 10/31/21 03:36 Pulse Ox 94 10/31/21 03:36 BMI result Body Mass Index 37.8 Const: General: cooperative, healthy appearing and no acute distress Resp: Effort & Inspection: normal respiratory effort and able to speak in complete sentences Cardio: Rate: regular rate Peripheral pulses: Peripheral pulses 2+ throughout GI: Palpation (GI): Soft to palpation Skin: General skin exam: no rashes or lesions noted Extrem: Other: incision clean dry and intact. Jaylin intact. No erythema or joint effusion. Calf supple nontender. Neurovascularly intact. DS: Data Data Completed and Pending Completed studies during hospitalization [Text1]: Pending at discharge 10/29/21 09:16 Surgical [PTH] Routine Labs on day of discharge: Laboratory Results - last 24 hr 10/31/21 10/31/21 05:31 05:31 WBC 18.7 H RBC 4.23 Hgb 11.9 L Hct 37.1 MCV 87.7 MCH 28.1 MCHC 32.1 RDW 16.1 H Plt Count 190 MPV 10.4 Immature Gran % (Auto) 1.3 H Neut % (Auto) 73.3 H Lymph % (Auto) 10.7 L [place] % (Auto) 12.1 H Eos % (Auto) 2.1 Baso % (Auto) 0.5 Lymph # (Auto) 2.0 [place] # (Auto) 2.3 H Eos # (Auto) 0.4 Baso # (Auto) 0.1 Abs Immat Gran (auto) 0.25 H Absolute Neuts (auto) 13.7 H Absolute Nucleated RBC 0.000 Nucleated RBC % (auto) 0.0 Smear Tech's Comments VERIFIED Sodium 139 Potassium 4.6 Chloride 103 Carbon Dioxide 28 Anion Gap 13 BUN 34 H Creatinine 1.15 Estim Creat Clear Calc 47.5 Estimated GFR 46 Fasting Glucose 131 H Calcium 9.1 D Discharge Plan Discharge Patient Disposition: Home Health Service Discharge Diagnosis: RT TKA Referrals: [facility] [Outside] - 1 Day (CARE HOME WILL START THURSDAY 11/02 AND OT/PT WILL START FRIDAY 11/03.) Abigail Jimenez PA-C [Physician Reference Librarian] - 2 Weeks (11/13/21 12:30 [facility] Abigail Jimenez PA-C) Discharge Medications: New docusate sodium 100 mg Capsule 100 mg PO BID 14 Days Qty: 28 0RF aspirin 325 mg Tablet 325 mg PO BID 42 Days Qty: 84 0RF oxycodone 5 mg Tablet 5 mg PO Q4H PRN (Reason: Pain, Moderate (Pain Scale 4-6) 7 Days Qty: 42 0RF acetaminophen 325 mg Tablet 650 mg PO Q6H PRN (Reason: Pain, Mild (Pain Scale 1-3)) 30 Days Qty: 240 0RF Continued gabapentin 100 mg capsule 100 mg PO BEDTIME 30 Days Qty: 30 0RF albuterol sulfate 0.63 mg/3 mL Solution For Nebulization 0.63 mg INHALATION Q4-6H PRN (Reason: Wheezing) 0RF omeprazole 40 mg Capsule,Delayed Release(Dr/Ec) 40 mg PO BID 0RF budesonide-formoterol [Symbicort] 160-4.5 mcg/actuation Hfa Aerosol Inhaler 1 inh INHALATION BID PRN (Reason: Wheezing) 0RF Incruse Ellipta 62.5 mcg/actuation Blister With Device 1 inh INHALATION DAILY 0RF simethicone [Gas Relief (simethicone)] 125 mg capsule 125 mg PO BID-QID PRN (Reason: Gastrointestinal Spasms Or Cramping) 0RF amlodipine 10 mg tablet 10 mg PO DAILY 0RF trospium 20 mg tablet 20 mg PO DAILY 0RF Rx Instructions: administer on an empty stomach atorvastatin 10 mg tablet 10 mg PO DAILY 0RF sertraline 50 mg tablet 50 mg PO BEDTIME 0RF torsemide 5 mg tablet 5 mg PO DAILY 0RF Discontinued acetaminophen 500 mg Tablet 1,000 mg PO Q6H PRN (Reason: Pain) 0RF aspirin [Adult Low Dose Aspirin] 81 mg tablet,delayed release (DR/EC) 81 mg PO DAILY 0RF Discharge Orders: Discharge Order (Routine); Ordered 10/31/21 Ordered By: Abigail Jimenez Diet: regular diet Activity on Discharge: Use cane or walker Stand Alone Forms: Patient Portal Discharge page Care Plan Goals: Restore function of joint Health Concerns: none Plan of Treatment: Physical Therapy Pain management DVT prophylaxis Assessment: * Physical Therapy for Total knee arthroplasty: gait training, ROM 0-12, quad strength * Limit stair climbing * No showering, no tub bath-keep dressing clean, dry and intact * No driving x6 weeks * Continue Aspirin twice a day x 6 weeks * Follow up with [facility] Orthopedics in 2 weeks Discharge Date/Time: 11/01/21 14:45
--- NOTE | 2021-10-31 08:19 | P.F2F_ITS ---
Service Date Service Date: 10/31/21 Encounter Date of encounter: 10/31/21 Reasons for Services Signs and symptoms assessed: right knee pain, swelling, diff with ambulation Reason for physical therapy: home safety and mobility, therapeutic exercises, restore joint function, gait/transfer training, ADL training and energy conservation Reason for occupational therapy: home safety and mobility, therapeutic exercises, restore joint function, gait/transfer training, ADL training and energy conservation Overseeing Care: John Hale Homebound: Leaving the home is medically contraindicated at this time without the asist of a device and/or another person due th the listed conditions above and below. Reason homebound: unsteady gait / fall risk, pain with ambulation, pain with transfers, poor balance / fall risk and unable to drive Homebound supporting statement: Pt. is considered home bound due to recent surgery. Unable to drive, poor balance, poor gait mechanics. Certification: Based on the above findings, I certify that this patient is confined to the home and needs intermittent intermediate care, physical therapy and/or speech therapy, or continues to need occupational therapy. The patient is under my care, and I have initiated the establishment of the plan of care. The patient will be followed by a physician who will periodically review the plan of care.
--- NOTE | 2021-10-31 08:53 | MHC.CM.PN ---
NURSE PERSONAL CARE ASSISTANT NOTE HERBIE Barraza WAS SCHEDULED FOR TRANSPORT 10.30 AT 17;30- BUT CALL[facility] AND SAID THEY WOULD NOT BE ABLE TO COME UNTIL 23;30 [facility] DECLINED EXCEPTANCE AT THIS LATE TIME OF LEAVING THE [facility] TO GO TO [facility] , I VCALLED ON 10/31/21 DPOKE WITH SHERI AND HE SPOKE WITH HIS COMMUNICATIONS MAINTAINER AND CQN COME AT 9;45 AM (SEC TO [place] CANCELLATION) SPOKE WITH HERMAN KULKARNI AT [facility] AND HE IS AWARE THAT PATIENT WILL NOW BE TRANSPORTED AT WITH [facility] AMB ARRIVAL TIME AYT 09;45 CLINICALLY ACCEPTED , CALLED TO RADHA GUNTER AND INFORMED HER IOF THIS WITH HER ACCEPTANCE AND SHE WILL CALL [facility] TO BRING UP CLOTHES AND SIG OFF ON ANY ADMISSION PAPERWORK discharge to str [facility] to be transported via [facility] [place] [facility] updated informed ptients
--- NOTE | 2021-10-31 09:33 | MHC.CM.PN ---
Addendum entered by Mulu Romano 10/31/21 14:42: PATIENTS O2 SATS 88% ON RA , INFORMED ORTHOPEDIC SIURGICAL PA ,, AND HOSPITALIST, CASE DISCUSSED WITH RESTPIRATORY THERAPIST AND STAFF NURSE , INFORMED THE EMILY BARNES THAT PATIENTS DISCHARGE WAS HELD FOR TODAY AND ANTICIPATED D/C TOMORROW WITH HOME PT TO START ON WEDNESDAY AND NOW MAY NEED NURSING TO BE EVALUATED Original Note: nurse renal case manager note electronic medical record reviewed , patient will be dischagred home today and she is aware of this discharge plan - home with family and self resunption of her vat tender services [facility] vna for home pt to start tomorrow transportation family
--- NOTE | 2021-10-31 12:17 | PC.NURSE ---
discharge held due to low o2 sat 83 on room air. Valerie and DR Roselia guillen made aware.
--- NOTE | 2021-10-31 13:54 | P.PNIM_ITS ---
Subjective Subjective Date of Service: 10/31/21 Interval History: status post right total knee arthroplasty has good pain control, offers no acute complaints, denies fever, chills, no nausea, no vomiting, no abdominal pain tolerating diet. Noted to have low O2 on room, she has no complaint. Review of Systems DOG TRAINER no headache, no dizziness CVS no chest pain, no palpitation no urinary urgency, no frequency Physical Exam Vital Signs: Vital Signs: Last Vital Signs Temp 99.3 F 10/31/21 07:43 Pulse 87 10/31/21 12:00 Resp 20 10/31/21 08:15 BP 137/56 L 10/31/21 12:00 Pulse Ox 92 10/31/21 13:45 BMI result Body Mass Index 37.8 Const: Other: General? awake alert x3,in no acute distress.? Neck? supple no JVD. CVS? regular rate rhythm, systolic murmur Respiratory lungs clear to auscultation, no respiratory distress Gastrointestinal abdomen soft, nontender, bowel sounds audible Extremities no edema. Right knee dressing in place Neuro nonfocal Skin no rash psych appropriate affect Objective Data Active Medications Acetaminophen (Acetaminophen 325 Mg Tablet) 650 mg PO Q6H PRN PRN Reason: Pain, Mild (Pain Scale 1-3) Last Admin: 10/31/21 08:13 Dose: 650 mg Documented by: SANTO Albuterol Sulfate (Albuterol Sulfate (0.042%) 1.25 Mg/3 Ml Vial.Neb) 0.63 mg INHALE Q4H PRN PRN Reason: Wheezing Amlodipine Besylate (Amlodipine Besylate 10 Mg Tablet) 10 mg PO DAILY [facility]; Protocol Last Admin: 10/31/21 08:09 Dose: 10 mg Documented by: SANTO Aspirin (Aspirin 325 Mg Tablet) 325 mg PO BID [facility] Last Admin: 10/31/21 08:09 Dose: 325 mg Documented by: SANTO Atorvastatin Calcium (Atorvastatin Calcium 10 Mg Tablet) 10 mg PO BEDTIME [facility] Last Admin: 10/30/21 20:52 Dose: 10 mg Documented by: FER Docusate Sodium (Docusate Sodium 100 Mg Capsule) 100 mg PO BID [facility] Last Admin: 10/31/21 08:09 Dose: 100 mg Documented by: SANTO Fluticasone/Vilanterol (Fluticasone/Vilanterol 200/25 Blst.W.Dev) 1 puff INHALE RDAILY [facility] Last Admin: 10/31/21 08:15 Dose: 1 puff Documented by: ROSALINA Gabapentin (Gabapentin 100 Mg Capsule) 100 mg PO BEDTIME [facility] Last Admin: 10/30/21 20:52 Dose: 100 mg Documented by: FER Hydromorphone HCl (Hydromorphone Hcl 1 Mg/Ml Syringe) 0.25 mg IVPUSH Q4H PRN; Protocol PRN Reason: Pain, Severe (Pain Scale 7-10) Last Admin: 10/29/21 21:39 Dose: 0.25 mg Documented by: FER Cefazolin Sodium/Dextrose (Ancef) 2 gm in 50 mls @ 100 mls/hr IV POSTOP [facility] Last Infusion: 10/29/21 20:02 Dose: 0 mls/hr Documented by: FER Non-Formulary Medication (Trospium) 20 mg PO DAILY [facility] Omeprazole (Omeprazole 40 Mg Capsule.Dr) 40 mg PO BID@0630,1630 [facility] Last Admin: 10/31/21 05:52 Dose: 40 mg Documented by: FER Ondansetron HCl (Ondansetron Hcl 4 Mg/2 Ml Vial) 4 mg IVPUSH Q8H PRN PRN Reason: Nausea and Vomiting Oxycodone HCl (Oxycodone Hcl Er 10 Mg Tab.Er.12h) 10 mg PO BID [facility] Last Admin: 10/31/21 08:09 Dose: 10 mg Documented by: SANTO Oxycodone HCl (Oxycodone Hcl Immed Release 5 Mg Tablet) 5 mg PO Q4H PRN PRN Reason: Pain, Moderate (Pain Scale 4-6 Last Admin: 10/31/21 05:51 Dose: 5 mg Documented by: FER Sertraline HCl (Sertraline Hcl 50 Mg Tablet) 50 mg PO BEDTIME [facility] Last Admin: 10/30/21 20:52 Dose: 50 mg Documented by: FER Sodium Chloride (0.9 % Sodium Chloride Flush 3 Ml Syringe) 3 ml IVFLUSH QSHIFT [facility] Last Admin: 10/31/21 08:10 Dose: 3 ml Documented by: HO.YOUB Tiotropium [place] (Tiotropium [place] 18 Mcg Cap.W.Dev) 1 puff INHALE RDAILY [facility] Last Admin: 10/31/21 08:15 Dose: 1 puff Documented by: ROSALINA Labs CBC & Chem 7: 10/31/21 05:31 10/31/21 05:31 Labs: Laboratory Results - last 24 hr 10/31/21 10/31/21 05:31 05:31 MCV 87.7 MCH 28.1 MCHC 32.1 RDW 16.1 H Plt Count 190 MPV 10.4 Immature Gran % (Auto) 1.3 H Neut % (Auto) 73.3 H Lymph % (Auto) 10.7 L [place] % (Auto) 12.1 H Eos % (Auto) 2.1 Baso % (Auto) 0.5 Lymph # (Auto) 2.0 [place] # (Auto) 2.3 H Eos # (Auto) 0.4 Baso # (Auto) 0.1 Abs Immat Gran (auto) 0.25 H Absolute Neuts (auto) 13.7 H Absolute Nucleated RBC 0.000 Nucleated RBC % (auto) 0.0 Smear Tech's Comments VERIFIED Anion Gap 13 Estim Creat Clear Calc 47.5 Estimated GFR 46 Fasting Glucose 131 H Calcium 9.1 D Assessment and Plan (1) Status post total right knee replacement: Status: Acute (2) Non-rheumatic aortic stenosis: Status: Acute (3) Essential hypertension: Status: Acute Plan 76-year-old female patient with multiple issues including history of asthma, hypertension, hyperlipidemia, mild coronary artery disease, GERD, hepatitis and pre diabetes? Underwent elective right total knee arthroplasty.. ?Right total knee arthroplasty postoperative day 1 ?pain management and anticoagulation as per Orthopedic surgery stable hematocrit cont. stool softeners and incentive spirometry ?Dehydration noted to have slight bump in creatinine, will DC Celebrex, follow BMP, encourage po fluids. Acute respiratory failure noted to have finger oximetry 87% on room air therefore placed on oxygen currently steve 92 on 2 liters ? leukocytosis likely reactive, will check urinalysis follow repeat CBC. ?hypertension? elevated BP this a.m.,continue amlodipine 10 mg daily, follow BP ?hyperlipidemia continue statin. ?mild coronary artery disease no chest pain, recent echo showed EF greater than 70 grade 1 diastolic dysfunction mild septal asymmetry, no valvular pathology. ?asthma no acute exacerbation, continue Symbicort and? home inhalers ?pre diabetes fasting blood sugar 135, recommend diabetic diet Low O2 sat--assymptomatic, probably post op atelectasis--use incentive spirometry, CT of chest beause of increasing WBC can probably go home tomorrow ?DVT prophylaxis as per Ortho Quality Stroke Does the patient have a stroke diagnosis?: No VTE Prior VTE?: No VTE Risk Level:: Surgical - very high VTE Device Contraindication: N/A - Device Ordered VTE Drug Contraindication: N/A - Med Ordered
[2021-10-31 16:14] LABS: COVID-19 Test Negative (Negative)
[2021-10-31] MEDS: HYDROmorphone HCl 1 MG/ML SYRINGE 0.25 MG IVPUSH (17:55)
[2021-10-31] MEDS: iohexoL 350 MG/ML 100 ML INFUS..BTL IV (18:40)
[2021-10-31] MEDS: Atorvastatin Calcium 10 MG TABLET PO (21:37)
[2021-10-31] MEDS: Gabapentin 100 MG CAPSULE PO (21:37)
[2021-10-31] MEDS: Sertraline HCL 50 MG TABLET PO (21:37)
[2021-11-01 03:19] VITALS: BP 133/61; PULSE 87; RESP 18; TEMP 36.9; O2SAT 92
[2021-11-01] MEDS: Omeprazole 40 MG CAPSULE.DR PO (05:49)
[2021-11-01 06:25] LABS: Basophils Absolute Auto 0.1 X10*3/uL (0.0-0.2); Basophils Percent Auto 0.4 % (0-2); Eosinophils Absolute Auto 0.4 X10*3/uL (0.0-0.4); Eosinophils Percent Auto 2.2 % (0-4); Hematocrit 36.6 % (37.0-47.0); Hemoglobin 11.6 g/dl (12.0-16.0); Imm Gran Abs Auto 0.21 X10*3/uL (0.00-0.03); Imm Gran Pct Auto 1.3 % (0.0-0.4); Lymphocytes Absolute Auto 1.6 X10*3/uL (1.2-4.9); Lymphocytes Percent Auto 9.2 % (20-40); MANUAL DIFF FLAG SCAN; Mean Corpuscular HGB Conc 31.7 g/dl (31.0-35.0); Mean Corpuscular Hemoglobin 27.6 pg (27.0-33.0); Mean Corpuscular Volume 86.9 fL (80.0-98.0); Mean Platelet Volume 10.9 fL (9.4-12.3); Monocytes Absolute Auto 1.8 X10*3/uL (0.1-1.2); Monocytes Percent Auto 10.7 % (2-11); Neutrophils Absolute Auto 12.8 x10*3/uL (2.0-8.3); Neutrophils Percent Auto 76.2 % (45-73); Platelet Count 218 X10*3/uL (160-400); Red Blood Count 4.21 X10*6/uL (4.20-5.50); Red Cell Distribution Width 16.3 % (11.0-16.0); SCAN SMEAR FLAG 1; White Blood Count 16.8 X10*3/uL (4.8-10.8)
[2021-11-01 06:51] LABS: Anion Gap 12 (12-20); Blood Urea Nitrogen 29 mg/dL (9-16); Calcium 8.4 mg/dL (8.4-10.2); Carbon Dioxide 28 mmol/L (22-29); Chloride 104 mmol/L (96-108); Creatinine Clr Calc Pharmacy 58.7; Estimated Glomerular Filt Rate 59; Glucose Fasting 123 mg/dL (60-99); Potassium 4.4 mmol/L (3.3-5.1); Sodium 140 mmol/L (135-145)
[2021-11-01 07:27] LABS: SLIDE REVIEW VERIFIED
[2021-11-01 07:48] VITALS: BP 151/67; PULSE 93; RESP 20; TEMP 36.6; O2SAT 91
[2021-11-01] MEDS: Fluticasone/Vilanterol 200/25 BLST.W.DEV 1 PUFF INHALE (08:01)
[2021-11-01 08:03] VITALS: PULSE 93; RESP 20; O2SAT 91
--- NOTE | 2021-11-01 08:40 | PM.EVENT ---
Event Note Date of Service: 10/31/21 Event Note: patient d/c was held due to dropping O2 saturation-medicine ordered CT of chest d/c pending clearance.
[2021-11-01] MEDS: oxyCODONE HCl ER 10 MG TAB.ER.12H PO (08:52)
[2021-11-01] MEDS: Docusate Sodium 100 MG CAPSULE PO (08:52)
[2021-11-01] MEDS: 0.9 % Sodium Chloride Flush 3 ML SYRINGE IVFLUSH (08:52)
[2021-11-01] MEDS: amLODIPine Besylate 10 MG TABLET PO (08:52)
[2021-11-01] MEDS: Aspirin 325 MG TABLET PO (08:52)
--- NOTE | 2021-11-01 09:39 | P.PNIM_ITS ---
Subjective Subjective Date of Service: 11/01/21 Interval History: s/p knee replacement, hypoxia post op. but assuymptomatic, no PNA or PE on CT.. likly atelectasis.. Review of Systems DRAIN LAYER no headache, no dizziness CVS no chest pain, no palpitation no urinary urgency, no frequency Physical Exam Vital Signs: Vital Signs: Last Vital Signs Temp 97.9 F 11/01/21 07:48 Pulse 93 11/01/21 08:03 Resp 20 11/01/21 08:03 BP 151/67 H 11/01/21 07:48 Pulse Ox 91 L 11/01/21 07:48 BMI result Body Mass Index 37.8 Const: Other: General? awake alert x3,in no acute distress.? Neck? supple no JVD. CVS? regular rate rhythm, systolic murmur Respiratory lungs clear to auscultation, no respiratory distress Gastrointestinal abdomen soft, nontender, bowel sounds audible Extremities no edema. Right knee dressing in place Neuro nonfocal Skin no rash psych appropriate affect Objective Data Active Medications Acetaminophen (Acetaminophen 325 Mg Tablet) 650 mg PO Q6H PRN PRN Reason: Pain, Mild (Pain Scale 1-3) Last Admin: 10/31/21 08:13 Dose: 650 mg Documented by: SNATO Albuterol Sulfate (Albuterol Sulfate (0.042%) 1.25 Mg/3 Ml Vial.Neb) 0.63 mg INHALE Q4H PRN PRN Reason: Wheezing Amlodipine Besylate (Amlodipine Besylate 10 Mg Tablet) 10 mg PO DAILY [facility]; Protocol Last Admin: 11/01/21 08:52 Dose: 10 mg Documented by: KARLA Aspirin (Aspirin 325 Mg Tablet) 325 mg PO BID [facility] Last Admin: 11/01/21 08:52 Dose: 325 mg Documented by: KARLA Atorvastatin Calcium (Atorvastatin Calcium 10 Mg Tablet) 10 mg PO BEDTIME [facility] Last Admin: 10/31/21 21:37 Dose: 10 mg Documented by: ADRIANA Docusate Sodium (Docusate Sodium 100 Mg Capsule) 100 mg PO BID [facility] Last Admin: 11/01/21 08:52 Dose: 100 mg Documented by: KARLA Fluticasone/Vilanterol (Fluticasone/Vilanterol 200/25 Blst.W.Dev) 1 puff INHALE RDAILY [facility] Last Admin: 11/01/21 08:01 Dose: 1 puff Documented by: YOMAIRA Gabapentin (Gabapentin 100 Mg Capsule) 100 mg PO BEDTIME [facility] Last Admin: 10/31/21 21:37 Dose: 100 mg Documented by: ADRIANA Hydromorphone HCl (Hydromorphone Hcl 1 Mg/Ml Syringe) 0.25 mg IVPUSH Q4H PRN; Protocol PRN Reason: Pain, Severe (Pain Scale 7-10) Last Admin: 10/31/21 17:55 Dose: 0.25 mg Documented by: MAME Cefazolin Sodium/Dextrose (Ancef) 2 gm in 50 mls @ 100 mls/hr IV POSTOP [facility] Last Infusion: 10/29/21 20:02 Dose: 0 mls/hr Documented by: EFR Non-Formulary Medication (Trospium) 20 mg PO DAILY [facility] Omeprazole (Omeprazole 40 Mg Capsule.Dr) 40 mg PO BID@0630,1630 [facility] Last Admin: 11/01/21 05:49 Dose: 40 mg Documented by: ADRIANA Ondansetron HCl (Ondansetron Hcl 4 Mg/2 Ml Vial) 4 mg IVPUSH Q8H PRN PRN Reason: Nausea and Vomiting Oxycodone HCl (Oxycodone Hcl Er 10 Mg Tab.Er.12h) 10 mg PO BID [facility] Last Admin: 11/01/21 08:52 Dose: 10 mg Documented by: KARLA Oxycodone HCl (Oxycodone Hcl Immed Release 5 Mg Tablet) 5 mg PO Q4H PRN PRN Reason: Pain, Moderate (Pain Scale 4-6 Last Admin: 10/31/21 17:48 Dose: 5 mg Documented by: MAME Sertraline HCl (Sertraline Hcl 50 Mg Tablet) 50 mg PO BEDTIME [facility] Last Admin: 10/31/21 21:37 Dose: 50 mg Documented by: ADRIANA Sodium Chloride (0.9 % Sodium Chloride Flush 3 Ml Syringe) 3 ml IVFLUSH QSHIFT [facility] Last Admin: 11/01/21 08:52 Dose: 3 ml Documented by: KARLA Tiotropium [place] (Tiotropium [place] 18 Mcg Cap.W.Dev) 1 puff INHALE RDAILY [facility] Last Admin: 11/01/21 08:01 Dose: 1 puff Documented by: YOMAIRA Labs CBC & Chem 7: 11/01/21 05:32 11/01/21 05:32 Labs: Laboratory Results - last 24 hr 10/31/21 11/01/21 11/01/21 15:45 05:32 05:32 MCV 86.9 MCH 27.6 MCHC 31.7 RDW 16.3 H Plt Count 218 MPV 10.9 Immature Gran % (Auto) 1.3 H Neut % (Auto) 76.2 H Lymph % (Auto) 9.2 L [place] % (Auto) 10.7 Eos % (Auto) 2.2 Baso % (Auto) 0.4 Lymph # (Auto) 1.6 [place] # (Auto) 1.8 H Eos # (Auto) 0.4 Baso # (Auto) 0.1 Abs Immat Gran (auto) 0.21 H Absolute Neuts (auto) 12.8 H Absolute Nucleated RBC 0.000 Nucleated RBC % (auto) 0.0 Smear Tech's Comments VERIFIED Anion Gap 12 Estim Creat Clear Calc 58.7 Estimated GFR 59 Fasting Glucose 123 H Calcium 8.4 D COVID-19 (FREDIS) Negative COVID-19 Clin Com See Note Assessment and Plan (1) Status post total right knee replacement: Status: Acute (2) Non-rheumatic aortic stenosis: Status: Acute (3) Essential hypertension: Status: Acute Plan 76-year-old female patient with multiple issues including history of asthma, hypertension, hyperlipidemia, mild coronary artery disease, GERD, hepatitis and pre diabetes? Underwent elective right total knee arthroplasty.. ?Right total knee arthroplasty ?pain management and anticoagulation as per Orthopedic surgery stable hematocrit cont. stool softeners and incentive spirometry ?Dehydration noted to have slight bump in creatinine, clinically doesn't appear dehydrated Acute respiratory failure noted to have finger oximetry 87% on room air ther efore placed on oxygen currently setve 92 on [address] chest no PNA, probably atelectasis.. Will give bronchodilators and steroid for possible reactive airway.. ? leukocytosis likely reactive, will check urinalysis follow repeat CBC. ?hypertension? elevated BP this a.m.,continue amlodipine 10 mg daily, follow BP ?hyperlipidemia continue statin. ?mild coronary artery disease no chest pain, recent echo showed EF greater than 70 grade 1 diastolic dysfunction mild septal asymmetry, no valvular pathology. ?asthma no acute exacerbation, continue Symbicort and? home inhalers ?pre diabetes fasting blood sugar 135, recommend diabetic diet Low O2 sat--assymptomatic, probably post op atelectasis--use incentive spirometry, CT of chest beause of increasing WBC Poor functional status and I think should be reeval for short term rehab ?DVT prophylaxis as per Ortho Quality Stroke Does the patient have a stroke diagnosis?: No VTE Prior VTE?: No VTE Risk Level:: Surgical - very high VTE Device Contraindication: N/A - Device Ordered VTE Drug Contraindication: N/A - Med Ordered
[2021-11-01] MEDS: predniSONE 20 MG TABLET PO (10:19)
[2021-11-01 12:00] VITALS: BP 127/72; PULSE 85; RESP 18; TEMP 36.6; O2SAT 90
--- NOTE | 2021-11-01 12:20 | P.F2F_ITS ---
Service Date Service Date: 11/01/21 Encounter Date of encounter: 11/01/21 Reasons for Services Signs and symptoms assessed: right knee pain, swelling, difficulty with ambulation. Low O2 saturation Reason for nursing home: other (home oxygen ) Reason for physical therapy: home safety and mobility, therapeutic exercises, restore joint function, gait/transfer training, ADL training and energy conservation Reason for occupational therapy: home safety and mobility, therapeutic exercises, restore joint function, gait/transfer training, ADL training and energy conservation MD Overseeing Care: John Hale Homebound: Leaving the home is medically contraindicated at this time without the asist of a device and/or another person due th the listed conditions above and below. Reason homebound: unsteady gait / fall risk, leg weakness, pain with ambulation, pain with transfers, poor balance / fall risk and unable to drive Homebound supporting statement: Pt. is considered home bound due to recent surgery. Unable to drive, poor balance, poor gait mechanics. Certification: Based on the above findings, I certify that this patient is confined to the home and needs intermittent nursing home care, physical therapy and/or speech therapy, or continues to need occupational therapy. The patient is under my care, and I have initiated the establishment of the plan of care. The patient will be followed by a physician who will periodically review the plan of care.
[2021-11-01 12:50] VITALS: PULSE 92; PULSE 93; PULSE 95; O2SAT 87; O2SAT 91; O2SAT 92
--- NOTE | 2021-11-01 13:19 | MHC.CM.PN ---
Addendum entered by Gavi Weber RN 11/01/21 13:46: [facility]NA WAS CHANGED [facility] WAS UNABLE TO PROVIDE GROUP HOME UNTIL NEXT WEDNESDAY FOR SOC AND PT IS NEW TO HOME O2. Original Note: PT DISCHARGING HOME W/NEW HOME O2 W/LICARE AND COMFORT PLUS FOR SN, OT/PT, PT'S DTR AT BEDSIDE AND WILL TRANSPORT.
--- NOTE | 2021-11-04 12:22 | P.OP_ITS ---
Operative Note Operative Note Date of Service: 10/29/21 Narrative: Date of Service: 10/29/21 Pre-op diagnosis: right knee OA Post-op diagnosis: same Procedure: Right TKA Implants: [employer] press fit posterior stabilized 11/21/10 Surgeon: John Hale MD Anesthesia: regional and spinal Was an Track Helper used for this Procedure?: Yes Track Helper: Rachel Fox Estimated blood loss (mL): 200 IV fluids (mL): 1,000 Pathology: other Condition: stable Disposition: PACU Procedure in detail: The patient was brought to the operating room and prepped and draped in standard sterile fashion. A time-out was called to identify proper site proper procedure proper surgeon and IV antibiotics were administered. 1 g of IV tranexamic acid was administered. I began by making a midline incision to the retinaculum and performed a medial parapatellar arthrotomy. The patella was translated laterally and the knee was flexed up.The medial and anterior compartment were eburnated. I performed a small medial peel and resected the infrapatellar fat pad. [place]'s line was then used to drill my intramedullary femoral guide and my distal femur cut of 10 mm was made in 5 degrees of valgus while protecting the soft tissues. I then measured a # 3 femur and placed my cutting guide and made my anterior posterior and chamfer cuts protecting the soft tissues at all times. I then made my box but removing the PCL. Once I was satisfied with my cuts I turned my attention to the tibia. I removed the meniscus medially and laterally and , using an external cutting guide, in line with the tibial crest and the third ray, I made my distal tibial cut in 0 deg slope of while protecting the PCL the posterior soft tissues at all times. An extension block was used to confirm appropriate amount of bony resection. I then sized a #4 tibia and once I was satisfied that there was complete tibial coverage I placed my trial and with the trial femur in place took the knee through range of motion. I was satisfied with the extension and flexion as well as the stability at 0, 30 and 90 degrees. I then turned my attention to the patella where I removed 1 cm from the undersurface of the patella and then trialed a 32a patellar button. Again the knee was taken through range of motion I was satisfied with the tracking. I then returned to the femur and drilled my femoral lug holes and prepared the tibia. A femoral bone plug was placed and the knee was irrigated copiously. I then press fit the patella, tibia and femur in standard fashion. I trialed different inserts until I selected a #11 insert. The final insert was placed and a 3 minutes iodine soak with local TXA was per formed. The knee was then closed with a running Quill suture, a 3 0 Vicryl and eleni on the skin. Patient was then placed in sterile dressing and brought to recovery room in stable condition there were no known complications.
== END 2021-11-01 14:45 | disposition home health service (06) | DRG 469 ==
LOC: HO.SSSA 06:14 → HO.S3 09:39
PROVIDERS: Internal Medicine; Physician Assistant; Admitting Provider Physician Assistant; PCP Physician Assistant Medical; Visit Provider Orthopaedic Surgery
PROC: 0SRC0JA Replacement of Right Knee Joint with Synthetic Substitute, Uncemented, Open Approach (ICD-10-PCS; CPT 27447; principal; 2021-10-29 07:30)
DX: M17.11 Unilateral primary osteoarthritis, right knee (principal); J96.01 Acute respiratory failure with hypoxia; R73.03 Prediabetes; I25.10 Atherosclerotic heart disease of native coronary artery without angina pectoris; I35.0 Nonrheumatic aortic (valve) stenosis; I10 Essential (primary) hypertension; J45.909 Unspecified asthma, uncomplicated; E86.0 Dehydration; D72.829 Elevated white blood cell count, unspecified; E78.5 Hyperlipidemia, unspecified; Z86.73 Personal history of transient ischemic attack (TIA), and cerebral infarction without residual deficits; Z20.822 Contact with and (suspected) exposure to COVID-19; Z79.82 Long term (current) use of aspirin; Z79.899 Other long term (current) drug therapy
CPT/HCPCS: 36415; 71275; 73560; 74240; 80048; 85025; 86850; 86900; 86901; 87635; 87640; 87641; 88305; 88311; 93005; 94640; 97110; 97116; 97162; 97530; C1776; J0131; J0690; J1170; J2250; J2370; J2405; J3010; Q9967

== ENCOUNTER → 2021-11-13 12:29 | Outpatient (BNVA) | payer OTHER, SELFPAY | PROVIDERS: PCP Physician Assistant Medical; Visit Provider Physician Assistant | DX: Z47.1 Aftercare following joint replacement surgery (principal); Z96.651 Presence of right artificial knee joint | CPT/HCPCS: 99212 ==

== ENCOUNTER → 2021-12-11 09:36 | Outpatient (BNVA) | payer OTHER, SELFPAY | PROVIDERS: PCP Physician Assistant Medical; Visit Provider Physician Assistant | DX: Z47.1 Aftercare following joint replacement surgery (principal); Z96.651 Presence of right artificial knee joint | CPT/HCPCS: 99212 ==

== ENCOUNTER 2021-12-31 11:00 | Outpatient (RCR) | payer OTHER, SELFPAY ==
--- NOTE | 2021-11-13 15:05 | MHC.PT.EP ---
[facility] [place] Office [place] Office [place] Office [address] Willie Wadsworth [address] [phone] F: [phone] F: [phone] F: [phone] F: [phone] Physical Therapy Plan of Care Date of Evaluation: Date of Surgery: 10/29/21 Diagnosis: Rt TKA Assessment: 76 YO FEMALE REF TO PT S/P Rt TKR ON 10/29/21- SHE RESIDES W HER SPOUSE IN A MOBILE HOME AND IS CURRENTLY AMB W A W/WALKER- Pt AND HER SPOUSE NOTE SHE HAS BEEN WITHOUT PAIN MEDS x 2 DAYS AND SHE HAS DECR TOLR TO ACTIVITY AND EXER THIS DATE (PAIN MEDS ADDRESSED BY ORTHO). OBJECTIVE FINDINGS: LIMITED AROM Rt KNEE, TIGHT PSOAS MATTY AND DECR ANKLE DF MATTY; DECR STRENGTH IN PROX / LUMBOPELVIC AND Rt LE, POST-OP PAIN IN RIGHT KNEE ,AND HEALING ANT Rt KNEE INCISION. FUNCTIONALLY, Pt IS AMB W A W/WALKER- SHE HAS COMPENSATORY GAIT, MODIFIED STAIR MGMT, DECR STANDING, SLEEPING, AND DECR JOANNE TO ADLs REQ Rt KNEE FLEX. Pt IS A VERY GOOD PT CANDIDATE TO GUIDE HER IN HER POST-OP TKR COURSE, ADDRESSING THE ABOVE FINDINGS, PAIN MGMT, AND MAXIMIZING FUNCTIONNAL INDEPENDENCE. Frequency and Duration: The patient will be seen 2 X wk X 6 wks Short Term Goals: Pt DEMON PROPER QUAD SET IN 1 WK Pt'S Rt KNEE PAIN DECREASED TO 2-3/10 IN 2 WKS Pt DEMON WFL AROM HIP EXT AND ANKLE DF/PF AND Rt AROM KNEE 0* TO 120* IN 3 WKS Pt DEMO IMPROVED GAIT MECH W LEAST RESTRICTIVE AD ON LEVEL GROUND AND STAIRS IN 2 WKS Pt INDEP W SCAR MOBILITY Rt ANT KNEE IN 3 WKS Automatic Bandsaw Tender Goals: Pt INDEP W HEP PROGRESSION AND SELF-SX MGMT STRATEGIES IN 6 WKS Pt RESUME REG ADLs EVIDENT W IMPROVED LEFI SCORE BY 8-10 POINTS IN 6 WKS Pt INCR Rt LE STRENGTH BY 1 GRADE IN 6 WKS Treatment Plan: Modalities to reduce pain, spasms and effusion. Manual therapy to restore motion and function. Therapeutic exercise to improve strength and flexibility. Neuromuscular re-education for posture and balance. Therapeutic activities to return to functional activities of daily living. Electronically signed by: Tonya Gibson PT Please sign and return to therapist. Thank you for your referral.
--- NOTE | 2022-02-09 14:47 | MHC.PT.DC ---
[facility] [place] Office [place] Office [place] Office [address] Willie Wadsworth [address] [facility] [phone] F: [phone] F: [phone] F: [phone] F: [phone] Physical Therapy Discharge Report Diagnosis: Rt TKA Date of Surgery: 10/29/21 Date of Evaluation: 11/13/21 Date of Discharge: 12/19/21 Treatments to Date: 4 Cancellations to Date: 2 No Shows to Date: 2 Discharge Status: Patient Elected to Stop Discharge Summary: Electronically signed by: Ken Subramanian PT. Please sign and return to therapist. Thank you for your referral.
== END 2022-02-09 14:43 | disposition home or self-care (01) ==
LOC: HO.PTCHIC 11:00
PROVIDERS: Visit Provider Physician Assistant
DX: M17.11 Unilateral primary osteoarthritis, right knee (principal)
CPT/HCPCS: 97110; 97140; 97162

== ENCOUNTER 2021-12-31 13:15 | Outpatient (REF) | payer OTHER, SELFPAY ==
--- NOTE | ~2021-12-31 | US_ITS ---
EXAMINATION: US VENOUS ULTRASOUND WITH DOPPLER LOWER EXTREMITY, RIGHT CLINICAL INFORMATION: Right artificial knee joint. Neck pain. COMPARISON: None TECHNIQUE: Ultrasound of the deep veins is performed from the hip to the calf with compression sonography and color and pulse Doppler assessment. Spectral analysis with color-flow imaging is performed. FINDINGS: There is normal venous compression and respiratory variation and augmented flow. The visualized common femoral vein, superficial femoral vein, profunda femoral vein, popliteal vein, and the trifurcation region shows no evidence of deep venous thrombosis. There is no significant popliteal fossa cyst. If the patient's symptoms persist, followup ultrasound in 5 days 7 days might be of value to exclude proximal propagation from a non-visualized calf vein. US/US venous duplex LE RT IMPRESSION: No DVT demonstrated in the right lower extremity.
== END 2021-12-31 13:16 | disposition home or self-care (01) ==
LOC: HO.US 13:15
PROVIDERS: Visit Provider Physician Assistant
DX: M79.89 Other specified soft tissue disorders (principal); R52 Pain, unspecified; Z96.651 Presence of right artificial knee joint
CPT/HCPCS: 93971

== ENCOUNTER → 2022-01-06 09:31 | Outpatient (BNVA) | payer OTHER, SELFPAY | PROVIDERS: PCP Physician Assistant Medical; Referring Provider Physician Assistant Medical; Visit Provider Internal Medicine | DX: I25.10 Atherosclerotic heart disease of native coronary artery without angina pectoris (principal); I10 Essential (primary) hypertension | CPT/HCPCS: 99212 ==

== ENCOUNTER 2022-01-22 06:47 | Outpatient (REF) | payer OTHER, SELFPAY ==
--- NOTE | ~2022-01-22 | XR_ITS ---
EXAMINATION: 1. STANDING AP RADIOGRAPHS OF BOTH KNEES 2. RADIOGRAPHS RIGHT KNEE, 2 VIEWS CLINICAL INFORMATION: Pain COMPARISON: Right knee x-rays May 29, 2022 and bilateral knee x-rays June 23, 2021 TECHNIQUE: Standing AP views of both knees were obtained in addition to lateral and patellar sunrise views of the right knee. FINDINGS: Patient is status post right total knee arthroplasty. Components are in expected orientation. There is no gross evidence of prosthetic loosening. No suprapatellar joint effusion. There is mild narrowing of the medial joint space of the left knee. Small osteophytes appreciated within the medial and lateral compartments. Similar appearance of suspected enchondroma within the distal femur. XR/XR knee standing BI IMPRESSION: -Unremarkable post arthroplasty radiographs of the right knee. -Mild degenerative changes of the medial compartment of the left knee.
--- NOTE | ~2022-01-22 | XR_ITS ---
EXAMINATION: 1. STANDING AP RADIOGRAPHS OF BOTH KNEES 2. RADIOGRAPHS RIGHT KNEE, 2 VIEWS CLINICAL INFORMATION: Pain COMPARISON: Right knee x-rays May 29, 2022 and bilateral knee x-rays June 23, 2021 TECHNIQUE: Standing AP views of both knees were obtained in addition to lateral and patellar sunrise views of the right knee. FINDINGS: Patient is status post right total knee arthroplasty. Components are in expected orientation. There is no gross evidence of prosthetic loosening. No suprapatellar joint effusion. There is mild narrowing of the medial joint space of the left knee. Small osteophytes appreciated within the medial and lateral compartments. Similar appearance of suspected enchondroma within the distal femur. XR/XR knee RT 2V IMPRESSION: -Unremarkable post arthroplasty radiographs of the right knee. -Mild degenerative changes of the medial compartment of the left knee.
== END 2022-01-22 06:48 | disposition home or self-care (01) ==
LOC: HO.HOSX 06:47
PROVIDERS: Visit Provider Orthopaedic Surgery
DX: M25.561 Pain in right knee (principal); Z96.651 Presence of right artificial knee joint; Z47.1 Aftercare following joint replacement surgery
CPT/HCPCS: 73560; 73565; 99212

== ENCOUNTER 2023-02-05 10:42 | Outpatient (REF) | payer OTHER, SELFPAY ==
[2023-02-05 12:27] LABS: Estimated Average Glucose 126 mg/dL
[2023-02-05 12:47] LABS: Alanine Aminotransferase 14 U/L (0-31); Anion Gap 14 (12-20); Aspartate Amino Transferase 18 U/L (5-31); Blood Urea Nitrogen 14 mg/dL (9-16); Calcium 8.9 mg/dL (8.4-10.2); Carbon Dioxide 28 mmol/L (22-29); Chloride 107 mmol/L (96-108); Cholesterol 130 mg/dL; Estimated Glomerular Filt Rate > 60; Glucose Fasting 96 mg/dL (60-99); HDL Cholesterol 30 mg/dL; LDL Cholesterol Calculated 74 mg/dl; Potassium 4.6 mmol/L (3.3-5.1); Sodium 144 mmol/L (135-145); Triglycerides 130 mg/dL
[2023-02-05 12:50] LABS: Vitamin D 25-OH Total 33.5 ng/mL (>30)
== END 2023-02-05 10:43 | disposition home or self-care (01) ==
LOC: HO.HMGCLDS 10:42
PROVIDERS: PCP Internal Medicine; Visit Provider Internal Medicine
DX: B18.2 Chronic viral hepatitis C (principal); E78.5 Hyperlipidemia, unspecified; I10 Essential (primary) hypertension; I48.91 Unspecified atrial fibrillation; M85.89 Other specified disorders of bone density and structure, multiple sites; N95.9 Unspecified menopausal and perimenopausal disorder; R73.01 Impaired fasting glucose
CPT/HCPCS: 36415; 80048; 80061; 82306; 83036; 84450; 84460